=== PATIENT | female | born 1950 | race Caucasian/White ===

== ENCOUNTER 2017-05-31 14:24 | Inpatient (IN) | payer OTHER ==
[~2017-05-31] VITALS: Ht 157.5 cm; Wt 51.5 kg
[~2017-05-31 14:24] MED LIST: CYCL-319 PO; IBUP-1542 PO
[2017-05-31] MEDS ORDERED: ONDANSETRON 4 MG INJ IV STA (17:19)
[2017-05-31] MEDS ORDERED: morphine 4 MG/ML VIAL IV STA (17:19)
[2017-05-31] MEDS ORDERED: SOD CHLORIDE 0.9% 1,000 ML IV STA (17:19)
[2017-05-31 17:40] LABS: ADD SCAN DIFF NO
[2017-05-31 17:41] LABS: BASOPHILS % 0.3 % (0.0-2.0); EOSINOPHILS % 0.1 % (0.0-7.0); HEMATOCRIT 39.8 % (37.0-47.0); HEMOGLOBIN 12.9 g/dl (12.0-16.0); LYMPHOCYTES # 0.8 10^3/ul (0.8-2.9); LYMPHOCYTES % 5.1 % (15.0-51.0); MEAN CORPUSCULAR HEMOGLOBIN 30.5 pg (29.0-33.0); MEAN CORPUSCULAR HGB CONC 32.4 g/dl (32.0-37.0); MEAN CORPUSCULAR VOLUME 94.1 fl (82.0-101.0); MEAN PLATELET VOLUME 10.6 fl (7.4-10.4); MONOCYTE # 0.3 10^3/ul (0.3-0.9); NEUTROPHIL # 14.2 10^3/ul (1.6-7.5); PLATELET COUNT 266 10^3/UL (140-415); RED BLOOD COUNT 4.23 10^6/ul (4.20-5.40); RED CELL DISTRIBUTION WIDTH 13.2 % (11.5-14.5); WHITE BLOOD COUNT 15.4 10^3/ul (4.8-10.8)
[2017-05-31 17:59] LABS: ALBUMIN 4.7 g/dl (3.3-4.9); ALBUMIN/GLOBULIN RATIO 1.3; BILIRUBIN,INDIRECT 0.7 mg/dl (0-1.1); BILIRUBIN,TOTAL 0.7 mg/dl (0.2-1.3); CALCIUM 9.6 mg/dl (8.4-10.2); CREATININE 0.95 mg/dl (0.44-1.00); POTASSIUM 3.8 mmol/L (3.5-5.1); TOTAL PROTEIN 8.3 g/dl (6.1-8.1)
[2017-05-31 18:04] LABS: ADD UMIC YES; UR ASCORBIC ACID 40 mg/dL (NEGATIVE); UR BILIRUBIN (Dip) NEGATIVE (NEGATIVE); UR BLOOD (Dip) 2+ mg/dL (NEGATIVE); UR CLARITY SLIGHTLY CLOUDY (CLEAR); UR COLOR YELLOW (YELLOW); UR GLUCOSE (Dip) NEGATIVE (NEGATIVE); UR KETONES (Dip) 2+ mg/dL (NEGATIVE); UR LEUKOCYTE ESTERASE (Dip) NEGATIVE Leu/ul (NEGATIVE); UR MUCUS MANY /HPF (NONE SEEN); UR NITRITE (Dip) NEGATIVE (NEGATIVE); UR RBC 25 /HPF (0-5); UR SPECIFIC GRAVITY (Dip) 1.025 (1.003-1.030); UR TOTAL PROTEIN (Dip) NEGATIVE (NEGATIVE); UR UROBILINOGEN (Dip) NEGATIVE (NEGATIVE)
[2017-05-31] MEDS ORDERED: FENTAnyl 50 MCG/ML VIAL IV ONE (18:30)
--- NOTE | 2017-05-31 20:12 | RADRPT ---
PROCEDURE: CT abdomen and pelvis without contrast. CLINICAL INDICATION: Abdominal pain TECHNIQUE: CT scan of the abdomen and pelvis without contrast was performed. Sagittal and coronal reformatted images were obtained from the axial source images. CTDI = 6.98 mGy; DLP = 333.89 mGy-cm COMPARISON: None available. FINDINGS: Visualized lower thorax: The lung bases are clear of infiltrates, relative hyperlucency within the plaque of the left lower lobe possibly related to air trapping, tiny punctate calcified granulomata of the left lung base are seen. There is no evidence for pleural effusion. Liver, gallbladder, pancreas and spleen: The liver is normal and size, contour and attenuation. Th ere is no evidence for a liver mass or ductal dilatation. Findings are compatible with prior cholec ystectomy. No common bile duct abnormality is demonstrated. The pancreas is unremarkable. The spl een is normal in size. Adrenal glands and genitourinary system: The adrenal glands are normal bilaterally. The kidneys are normal and size, contour and attenuation with no evidence for masses, calculi or hydronephrosis. T he ureters are unremarkable. No urinary bladder abnormality is demonstrated. Calcifications within the uterus likely reflect small leiomyomata. There is no evidence of ovarian or adnexal mass. The re is a small to moderate amount in the posterior cul-de-sac. Gastrointestinal system: The stomach is normal in caliber with no abnormality of significance. The small bowel is normal in caliber with no ileus, obstruction or wall thickening. The appendix is inf erior/pelvic in location and dilated measuring approximately 13.5 mm in diameter, mild stranding of the surrounding fat is present (series 3 image 118 - wire at 25). There is no evidence of extralumi nal gas, appendicolith or abscess. The location of the appendix is approximately 2.5 cm below the s kin surface at the level of the anterior-superior iliac spine. Moderate amount of fecal debris thro ughout the colon is concerning for constipation without evidence of colitis or diverticulitis. Peritoneum, retroperitoneum, lymph nodes and vessels: The abdominal aorta is normal in caliber. The re is moderate aortic and iliac atherosclerotic calcification. The inferior vena cava is unremarkab le. There is no evidence for adenopathy or mass. No upper abdominal ascites is present, again ther e is pelvic ascites. There is no evidence of pneumoperitoneum. Osseous structures and musculoskeletal findings: There is no fracture, lytic or blastic lesion. No muscular abnormality or soft tissue pathology is present. RPTAT:HJJR IMPRESSION: 1. Dilated appendix at 13.5 mm with stranding of the surrounding fat and of the pelvis, findings con cerning for acute appendicitis. Results are discussed by telephone with Dr. Connor at 20:11 2. Calcifications in the uterus likely leiomyomata. 3. Constipation pattern. 4. Aortic atherosclerosis is present. Physician Lewis Date Time Electronically viewed and signed by Henry Page Physician on 05/31/2017 20:11 JR/
[2017-05-31] MEDS ORDERED: HYDROmorphONE 1 MG/ML SYG IV STA (20:48)
[2017-05-31] MEDS ORDERED: SOD CHLORIDE 0.9% 1,000 ML IV ONE (21:00)
[2017-05-31] MEDS ORDERED: metroNIDAZOLE 500 MG/NS (PMX) 100 ML IVPB ONE (21:00)
[2017-05-31] MEDS ORDERED: CEFTRIAXONE 1 GM/50 ML (PMX) 50 ML IVPB ONE (21:00)
[2017-05-31] MEDS ORDERED: ONDANSETRON 4 MG INJ IV PRN (22:00)
[2017-05-31] MEDS ORDERED: ACETAMINOPHEN 325 MG TAB PO PRN (22:00)
--- NOTE | 2017-05-31 22:14 | ERA ---
ER Documentation Chief Complaint Date/Time DATE: 05/31/17 TIME: 22:11 Chief Complaint GENERALIZED ABD PAIN WITH NAUSEA X 2 DAYS. HEADACHE HPI 66-year-old female with generalized lower abdominal pain for the last 2 days. Also nausea and inability to eat for a day and a half. States that she was dancing a lot this weekend thinks it might have to do with that. Denies fever and chills but feels very bad. Pain is severe sometimes and sometimes becomes mild. Sharp pain peer ROS All systems reviewed and are negative except as per history of present illness. Medications Home Meds Discontinued Scripts Cyclobenzaprine Hcl* (Cyclobenzaprine Hcl*) 10 Mg Tablet, 10 MG PO TID, #15 TAB Prov:ABRAN GARCIA. [employer] 05/01/15 Ibuprofen* (Motrin*) 600 Mg Tab, 600 MG PO Q6H Y for PAIN AND OR ELEVATED TEMP, #30 Prov:ABRAN GARCIA. [employer] 05/01/15 Allergies Allergies: Coded Allergies: No Known Allergy (Unverified , 05/31/17) PMhx/Soc Medical and Surgical Hx: pt denies Medical Hx Hx Alcohol Use: No Hx Substance Use: No Hx Tobacco Use: No Smoking Status: Never smoker Physical Exam Vitals Vital Signs Date Time Temp Pulse Resp B/P Pulse Ox O2 Delivery O2 Flow Rate FiO2 05/31/17 20:39 98.7 53 20 128/70 100 Room Air 05/31/17 18:59 98.6 53 20 136/71 100 Room Air 05/31/17 18:39 97.8 53 16 150/67 99 Room Air 05/31/17 17:40 56 18 108/63 99 Room Air 05/31/17 14:31 98.1 56 18 139/63 100 Physical Exam Const: [] Mild distress Head: Atraumatic Eyes: Normal Conjunctiva ENT: Normal External Ears, Nose and Mouth. Neck: Full range of motion..~ No meningismus. Resp: Clear to auscultation bilaterally Cardio: Regular rate and rhythm, no murmurs Abd: Soft, mild to moderate right lower quadrant tenderness with mild guarding there is voluntary and no rebound., non distended. Normal bowel sounds Skin: No petechiae or rashes Back: No midline or flank tenderness Ext: No cyanosis, or edema Neur: Awake and alert and oriented 3, no focal deficits Psych: Normal Mood and Affect Result Diagram: 05/31/17 1725 05/31/17 1725 Results 24 hrs Laboratory Tests Test 05/31/17 17:25 White Blood Count 15.410^3/ul Red Blood Count 4.2310^6/ul Hemoglobin 12.9g/dl Hematocrit 39.8% Mean Corpuscular Volume 94.1fl Mean Corpuscular Hemoglobin 30.5pg Mean Corpuscular Hemoglobin Concent 32.4g/dl Red Cell Distribution Width 13.2% Platelet Count 22169^3/UL Mean Platelet Volume 10.6fl Neutrophils % 92.0% Lymphocytes % 5.1% Monocytes % 2.0% Eosinophils % 0.1% Basophils % 0.3% Nucleated Red Blood Cells % 0.0/100WBC Neutrophils # 14.210^3/ul Lymphocytes # 0.810^3/ul Monocytes # 0.310^3/ul Eosinophils # 0.010^3/ul Basophils # 0.010^3/ul Nucleated Red Blood Cells # 0.010^3/ul Urine Color YELLOW Urine Clarity SLIGHTLY CLOUDY Urine pH 5.0 Urine Specific [place] 1.025 Urine Ketones 2+mg/dL Urine Nitrite NEGATIVEmg/dL Urine Bilirubin NEGATIVEmg/dL Urine Urobilinogen NEGATIVEmg/dL Urine Leukocyte Esterase NEGATIVELeu/ul Urine Microscopic RBC 25/HPF Urine Microscopic WBC 1/HPF Urine Mucus MANY/HPF Urine Hemoglobin 2+mg/dL Urine Glucose NEGATIVEmg/dL Urine Total Protein NEGATIVEmg/dl Sodium Level 142mmol/L Potassium Level 3.8mmol/L Chloride Level 98mmol/L Carbon Dioxide Level 26mmol/L Anion Gap 22 Blood Urea Nitrogen 25mg/dl Creatinine 0.95mg/dl Glucose Level 103mg/dl Calcium Level 9.6mg/dl Total Bilirubin 0.7mg/dl Direct Bilirubin 0.00mg/dl Indirect Bilirubin 0.7mg/dl Aspartate Amino Transf (AST/SGOT) 24IU/L Alanine Aminotransferase (ALT/SGPT) 25IU/L Alkaline Phosphatase 79IU/L Total Protein 8.3g/dl Albumin 4.7g/dl Globulin 3.60g/dl Albumin/Globulin Ratio 1.30 Lipase 139U/L Current Medications Medications (Trade) Dose Ordered Sig/Humera Route PRN Reason Start Time Stop Time Status Last Admin Dose Admin Sodium Chloride (NS) 1,000 ml @ 1,000 mls/hr Q1H STAT IV 05/31/17 17:19 05/31/17 18:18 DC 05/31/17 17:28 Morphine Sulfate (morphine) 4 mg ONCE STAT IV 05/31/17 17:19 05/31/17 17:22 DC Ondansetron HCl (Zofran Inj) 4 mg ONCE STAT IV 05/31/17 17:19 05/31/17 17:22 DC 05/31/17 17:28 Fentanyl 25 mcg 25 mcg ONCE ONCE IV 05/31/17 18:30 05/31/17 18:31 DC 05/31/17 18:54 Ceftriaxone Sodium 50 ml @ 100 mls/hr ONCE ONCE IVPB 05/31/17 21:00 05/31/17 21:29 DC 05/31/17 21:12 Metronidazole 100 ml @ 100 mls/hr ONCE ONCE IVPB 05/31/17 21:00 05/31/17 21:59 DC Sodium Chloride (NS) 1,000 ml @ 1,000 mls/hr Q1H ONCE IV 05/31/17 21:00 05/31/17 21:59 DC 05/31/17 21:16 Hydromorphone HCl (Dilaudid) 0.5 mg ONCE STAT IV 05/31/17 20:48 05/31/17 20:50 DC 05/31/17 21:17 Ondansetron HCl (Zofran Inj) 4 mg BRIDGE ORDER PRN IV NAUSEA AND/OR VOMITING 05/31/17 22:00 06/01/17 21:59 Acetaminophen (Tylenol Tab) 650 mg ER BRIDGE PRN PO MILD PAIN/FEVER 05/31/17 22:00 06/01/17 21:59 Procedures/MDM Acute appendicitis. Patient was given IV fluid, pain medication, antiemetics as well as Rocephin and Flagyl. Coags were obtained. I spoke with Dr. Shankar , general surgeon promotion officer. [facility]. [facility]. CT abdomen pelvis interpretation: Acute appendicitis. No obstruction, no free air, no fractures Departure Diagnosis: Primary Impression: Acute appendicitis HAO ARIAS DO May 31, 2017 22:14
[2017-05-31 22:15] VITALS: TEMP 98.6
[2017-05-31 22:21] LABS: INR 0.97; PROTIME 12.9 Sec (12.2-14.2)
[2017-05-31 22:22] LABS: PARTIAL THROMBOPLASTIN TIME 26.7 Sec (25.0-35.0)
[2017-05-31 23:12] VITALS: Ht 157.5 cm; Wt 51.5 kg
[2017-05-31] MEDS: DEXTROSE 5%-0.45% NACL 1,000 ML IV SCH (23:56)
[2017-06-01] VITALS (21 sets, daily range): BP systolic 103–140; BP diastolic 56–74; PULSE 59–80; RESP 14–23
[2017-06-01] MEDS ORDERED: ACETAMINOPHEN 650 MG SUPP PR PRN
[2017-06-01 04:50] LABS: ADD SCAN DIFF NO
[2017-06-01] MEDS: morphine 4 MG/ML VIAL IV PRN ×2 (04:53)
[2017-06-01 04:54] LABS: BASOPHILS % 0.2 % (0.0-2.0); EOSINOPHILS # 0.1 10^3/ul (0.0-0.5); EOSINOPHILS % 0.6 % (0.0-7.0); HEMOGLOBIN 10.5 g/dl (12.0-16.0); LYMPHOCYTES # 1.3 10^3/ul (0.8-2.9); LYMPHOCYTES % 11.8 % (15.0-51.0); MEAN CORPUSCULAR HEMOGLOBIN 29.7 pg (29.0-33.0); MEAN CORPUSCULAR HGB CONC 31.8 g/dl (32.0-37.0); MEAN CORPUSCULAR VOLUME 93.5 fl (82.0-101.0); MEAN PLATELET VOLUME 10.3 fl (7.4-10.4); MONOCYTE # 0.7 10^3/ul (0.3-0.9); MONOCYTES % 5.9 % (0.0-11.0); PLATELET COUNT 190 10^3/UL (140-415); RED BLOOD COUNT 3.53 10^6/ul (4.20-5.40); RED CELL DISTRIBUTION WIDTH 13.4 % (11.5-14.5); WHITE BLOOD COUNT 11.1 10^3/ul (4.8-10.8)
[2017-06-01 05:14] LABS: ALBUMIN 3.1 g/dl (3.3-4.9); ALBUMIN/GLOBULIN RATIO 1.14; BILIRUBIN,INDIRECT 0.5 mg/dl (0-1.1); BILIRUBIN,TOTAL 0.5 mg/dl (0.2-1.3); CREATININE 0.9 mg/dl (0.44-1.00); MAGNESIUM 1.8 mg/dl (1.7-2.5); PHOSPHORUS 3.5 mg/dl (2.5-4.9); POTASSIUM 3.5 mmol/L (3.5-5.1); TOTAL PROTEIN 5.8 g/dl (6.1-8.1)
[2017-06-01] MEDS ORDERED: GLYCOPYRROLATE 0.4 MG INJ ONE (07:00)
[2017-06-01] MEDS ORDERED: NEOSTIGMINE 3 MG/3 ML SYRINGE ONE (07:00)
[2017-06-01] MEDS ORDERED: EPHEDrine SULFATE 50 MG/5 ML SYG ONE (07:00)
[2017-06-01] MEDS: AMPICILLIN/SULB 3 GM/NS (PMX) 100 ML IVPB SCH ×2 (07:07→14:43)
[2017-06-01] MEDS ORDERED: morphine 4 MG/ML VIAL IV STA (07:29)
[2017-06-01] MEDS ORDERED: morphine 4 MG/ML VIAL IV PRN (10:00)
[2017-06-01] MEDS: DEXTROSE 5%-0.45% NACL 1,000 ML IV SCH (11:44)
--- NOTE | 2017-06-01 15:02 | RADRPT ---
PROCEDURE: Chest Radiograph. CLINICAL INDICATION: Preop TECHNIQUE: Single frontal chest radiograph. COMPARISON: CT abdomen pelvis 05/31/2017 FINDINGS: The cardiomediastinal silhouette is within normal limits. No infiltrate or effusion is seen. Th e bones are intact. IMPRESSION: 1. Unremarkable chest radiograph. RPTAT: KK .Almas Vanegas MD, MD Date Time Electronically viewed and signed by .Almas Vanegas MD, on 06/01/2017 15:02 .B/
--- NOTE | 2017-06-01 15:08 | PN ---
Date/Time of Note Date/Time of Note DATE: 06/01/17 TIME: 15:06 Assessment/Plan VTE Prophylaxis VTE Prophylaxis Intervention: SCD's Lines/Catheters IV Catheter Type (from [facility]): Peripheral IV Assessment/Plan Chief Complaint/Hosp Course Patient is a 66-year-old female with complaint of lower abdominal pain for the last 2 days, found to have acute appendicitis. Assessment Abdominal pain Acute appendicitis Leukocytosis, resolved Anemia, mild, Plan -Dr. Nevarez consulted, general surgery, plan for OR today -Pain control as necessary -N.p.o. until after surgery -Monitor overnight, likely DC tomorrow if no complications Fantasma Fontaine DO Problems: Subjective 24 Hr Interval Summary Free Text/Dictation no other complaints than RLQ tenderness Exam/Review of Systems Vital Signs Vitals Vital Signs Date Time Temp Pulse Resp B/P Pulse Ox O2 Delivery O2 Flow Rate FiO2 06/01/17 08:00 98.7 77 20 128/74 98 06/01/17 05:00 Room Air Intake and Output 05/31/17 05/31/17 06/01/17 15:00 23:00 07:00 Intake Total 1050 ml 600 ml Output Total 700 ml Balance 1050 ml -100 ml Exam Physical exam General: Patient is laying in bed and answers questions appropriately Mentation: Patient is alert and oriented 4, Head: Normocephalic atraumatic Eyes: EOMI, pupils reactive to light Neck: Supple, nontender, midline Respiratory: Clear to auscultation bilaterally Cardiovascular: regular rate, no obvious murmurs Gastrointestinal: RLQ tender to palpation, bowel sounds heard. Neurological: Moves all extremities spontaneously Skin: No new skin lesions Results Result Diagram: 06/01/17 0427 06/01/17 0427 Results 24 hrs Laboratory Tests Test 05/31/17 17:25 05/31/17 19:25 06/01/17 04:27 White Blood Count 15.4 H 11.1 #H Red Blood Count 4.23 3.53 L Hemoglobin 12.9 10.5 L Hematocrit 39.8 33.0 L Mean Corpuscular Volume 94.1 93.5 Mean Corpuscular Hemoglobin 30.5 29.7 Mean Corpuscular Hemoglobin Concent 32.4 31.8 L Red Cell Distribution Width 13.2 13.4 Platelet Count 266 190 # Mean Platelet Volume 10.6 H 10.3 Neutrophils % 92.0 H 81.0 H Lymphocytes % 5.1 L 11.8 L Monocytes % 2.0 5.9 Eosinophils % 0.1 0.6 Basophils % 0.3 0.2 Nucleated Red Blood Cells % 0.0 0.0 Neutrophils # 14.2 H 9.0 H Lymphocytes # 0.8 1.3 Monocytes # 0.3 0.7 Eosinophils # 0.0 0.1 Basophils # 0.0 0.0 Nucleated Red Blood Cells # 0.0 0.0 Urine Color YELLOW Urine Clarity SLIGHTLY CLOUDY A Urine pH 5.0 Urine Specific [place] 1.025 Urine Ketones 2+ H Urine Nitrite NEGATIVE Urine Bilirubin NEGATIVE Urine Urobilinogen NEGATIVE Urine Leukocyte Esterase NEGATIVE Urine Microscopic RBC 25 H Urine Microscopic WBC 1 Urine Mucus MANY A Urine Hemoglobin 2+ H Urine Glucose NEGATIVE Urine Total Protein NEGATIVE Sodium Level 142 142 Potassium Level 3.8 3.5 Chloride Level 98 104 Carbon Dioxide Level 26 25 Anion Gap 22 H 17 H Blood Urea Nitrogen 25 H 17 Creatinine 0.95 0.90 Glucose Level 103 115 Calcium Level 9.6 8.0 L Total Bilirubin 0.7 0.5 Direct Bilirubin 0.00 0.00 Indirect Bilirubin 0.7 0.5 Aspartate Amino Transf (AST/SGOT) 24 17 Alanine Aminotransferase (ALT/SGPT) 25 24 Alkaline Phosphatase 79 49 Total Protein 8.3 H 5.8 #L Albumin 4.7 3.1 #L Globulin 3.60 H 2.70 Albumin/Globulin Ratio 1.30 1.14 Lipase 139 Prothrombin Time 12.9 Prothrombin Time Ratio 1.0 INR International Normalized Ratio 0.97 Activated Partial Thromboplast Time 26.7 Phosphorus Level 3.5 Magnesium Level 1.8 Medications Medications Current Medications Dextrose/Sodium Chloride (D5-1/2ns) 1,000 ml @ 100 mls/hr Q10H IV Last administered on 06/01/17t 11:44; Admin Dose 100 MLS/HR; Start 06/01/17 at 00:00 Ondansetron HCl (Zofran Inj) 4 mg Q6H PRN IV NAUSEA AND/OR VOMITING; Start at 00:00 Acetaminophen 650 mg 650 mg Q6H PRN [place] FEVER; Start 06/01/17 at 00:00 Ampicillin Sodium/ Sulbactam Sodium (Unasyn 3gm/NS (Pmx)) 100 ml @ 100 mls/hr Q8 IVPB Last administered on 06/01/17 14:43; Admin Dose 100 MLS/HR; Start at 06:00 Morphine Sulfate (morphine) 4 mg Q3H PRN IV PAIN LEVEL 7-10 Last administered on 06/01/17 11:44; Admin Dose 4 MG; Start 06/01/17 at 10:00 FANTASMA FONTAINE Jun 01, 2017 15:08
[2017-06-01] MEDS ORDERED: BUPIVACAINE 0.25%/EPI (SDV) 30 ML INJ ONE ×2 (15:53→17:48)
[2017-06-01] MEDS ORDERED: LIDOCAINE 1% (MPF) 30 ML INJ ONE ×2 (15:53→17:47)
--- NOTE | 2017-06-01 16:25 | CONS ---
Date/Time of Note Date/Time of Note DATE: 06/01/17 TIME: 16:17 Assessment/Plan Assessment/Plan Chief Complaint/Hosp Course 1. Acute abdominal pain with leukocytosis and CT findings are suggestive of acute appendicitis. -IV antibiotics -Pain control -IV fluids -Patient offered options of nonsurgical treatment (antibiotics and observation) versus laparoscopic appendectomy. Risks and his alternatives were fully explained. She prefers to proceed with surgery at this time. 2. Anemia probably dilutional -Monitor 3. Hypoalbuminemia probably secondary to acute process -Monitor -Eventual nutritional optimization Thank you very much for consulting me in this patient's care, Problems: Consultation Date/Type/Reason Admit Date/Time May 31, 2017 at 21:43 Date of Consultation: Jun 01, 2017 Type of Consultation: General surgical Reason for Consultation Abdominal pain Acute appendicitis Leukocytosis Anemia Hypoalbuminemia Referring Provider: HAO ARIAS DO Hx of Present Illness [place] Garcia is a 66-year-old female otherwise mostly healthy who presents with 2 days of abdominal pain associated with nausea but no vomiting. No fevers or chills. No chest pain or shortness of breath. No previous history of the same. No visual neurologic changes. No dysuria. No abnormal discharge. No headache, dizziness, rashes, bloating. Last bowel function was about 36 hours ago. Normally has a bowel movement daily. In the emergency room her workup identified her to have leukocytosis and CT diagnosis of acute appendicitis. She is admitted placed on antibiotics and surgical consult is obtained further evaluation and treatment. 12 point review of systems negative unless addressed in HPI Past Medical History Anemia Hypoalbuminemia Acute leukocytosis Acute abdominal pain Acute appendicitis Past Surgical History section Family History Significant Family History: no pertinent family hx Social History Alcohol Use: none Smoking Status: Never smoker Drug Use: none Exam/Review of Systems Vital Signs Vitals Vital Signs Date Time Temp Pulse Resp B/P Pulse Ox O2 Delivery O2 Flow Rate FiO2 06/01/17 08:00 98.7 77 20 128/74 98 06/01/17 05:00 Room Air Intake and Output 05/31/17 05/31/17 06/01/17 15:00 23:00 07:00 Intake Total 1050 ml 600 ml Output Total 700 ml Balance 1050 ml -100 ml Exam Constitutional: alert, oriented, No distress Psych: nl mood/affect, No anxiety, No confusion Eyes: EOMI, PERRL, nl conjunctiva, No icteric ENMT: mucosa pink and moist, nl external ears & nose, nl lips & teeth Neck: non-tender, supple, No jvd Respiratory: normal air movement, No congested cough, No labored breathing Cardiovascular: regular rate and rhythm, No edema Gastrointestinal: soft, tender (Generalized but mostly in the right lower quadrant), No distended, No rebound or guarding Musculoskeletal: nl extremities to inspection, nl gait and stance, No joint tenderness Extremities: normal pulses, No calf tenderness, No cyanosis Neurological: nl mental status, nl speech, nl strength, No confused Skin: nl turgor, No diaphoresis, No ecchymosis, No rash or lesions Lymph: nl lymph nodes Results Result Diagram: 06/01/1742606/01/17426 Results 24 hrs Laboratory Tests Test 05/31/17 17:25 05/31/17 19:25 06/01/17 04:27 White Blood Count 15.4 H 11.1 #H Red Blood Count 4.23 3.53 L Hemoglobin 12.9 10.5 L Hematocrit 39.8 33.0 L Mean Corpuscular Volume 94.1 93.5 Mean Corpuscular Hemoglobin 30.5 29.7 Mean Corpuscular Hemoglobin Concent 32.4 31.8 L Red Cell Distribution Width 13.2 13.4 Platelet Count 266 190 # Mean Platelet Volume 10.6 H 10.3 Neutrophils % 92.0 H 81.0 H Lymphocytes % 5.1 L 11.8 L Monocytes % 2.0 5.9 Eosinophils % 0.1 0.6 Basophils % 0.3 0.2 Nucleated Red Blood Cells % 0.0 0.0 Neutrophils # 14.2 H 9.0 H Lymphocytes # 0.8 1.3 Monocytes # 0.3 0.7 Eosinophils # 0.0 0.1 Basophils # 0.0 0.0 Nucleated Red Blood Cells # 0.0 0.0 Urine Color YELLOW Urine Clarity SLIGHTLY CLOUDY A Urine pH 5.0 Urine Specific [place] 1.025 Urine Ketones 2+ H Urine Nitrite NEGATIVE Urine Bilirubin NEGATIVE Urine Urobilinogen NEGATIVE Urine Leukocyte Esterase NEGATIVE Urine Microscopic RBC 25 H Urine Microscopic WBC 1 Urine Mucus MANY A Urine Hemoglobin 2+ H Urine Glucose NEGATIVE Urine Total Protein NEGATIVE Sodium Level 142 142 Potassium Level 3.8 3.5 Chloride Level 98 104 Carbon Dioxide Level 26 25 Anion Gap 22 H 17 H Blood Urea Nitrogen 25 H 17 Creatinine 0.95 0.90 Glucose Level 103 115 Calcium Level 9.6 8.0 L Total Bilirubin 0.7 0.5 Direct Bilirubin 0.00 0.00 Indirect Bilirubin 0.7 0.5 Aspartate Amino Transf (AST/SGOT) 24 17 Alanine Aminotransferase (ALT/SGPT) 25 24 Alkaline Phosphatase 79 49 Total Protein 8.3 H 5.8 #L Albumin 4.7 3.1 #L Globulin 3.60 H 2.70 Albumin/Globulin Ratio 1.30 1.14 Lipase 139 Prothrombin Time 12.9 Prothrombin Time Ratio 1.0 INR International Normalized Ratio 0.97 Activated Partial Thromboplast Time 26.7 Phosphorus Level 3.5 Magnesium Level 1.8 Medications Medications Current Medications Dextrose/Sodium Chloride (D5-1/2ns) 1,000 ml @ 100 mls/hr Q10H IV Last administered on 06/01/17 11:44; Admin Dose 100 MLS/HR; Start 06/01/17 at 00:00 Ondansetron HCl (Zofran Inj) 4 mg Q6H PRN IV NAUSEA AND/OR VOMITING; Start at 00:00 Acetaminophen 650 mg 650 mg Q6H PRN [place] FEVER; Start 06/01/17 at 00:00 Ampicillin Sodium/ Sulbactam Sodium (Unasyn 3gm/NS (Pmx)) 100 ml @ 100 mls/hr Q8 IVPB Last administered on 06/01/17 14:43; Admin Dose 100 MLS/HR; Start at 06:00 Morphine Sulfate (morphine) 4 mg Q3H PRN IV PAIN LEVEL 7-10 Last administered on 06/01/17 11:44; Admin Dose 4 MG; Start 06/01/17 at 10:00 GALINA PEREZ MD Jun 01, 2017 16:25
[2017-06-01] MEDS ORDERED: MIDAZOLAM 1 MG/ML 2 ML INJ ONE (17:14)
[2017-06-01] MEDS ORDERED: FENTAnyl 50 MCG/ML VIAL ONE (17:14)
--- NOTE | 2017-06-01 17:38 | RADRPT ---
Vent Rate: 78 bpm RR Interval: 0 msec CA Interval: 146 msec QRS Duration: 88 msec QT Interval: 382 msec QTC Interval: 435 msec P-R-T Cameron: 38 - 37 - 47 degrees Normal sinus rhythm Normal ECG Electronically Signed By: Mart Vazquez [id number]
[2017-06-01] MEDS ORDERED: DIPHENHYDRAMINE 50 MG INJ IV PRN (18:00)
[2017-06-01] MEDS ORDERED: HYDROmorphONE (0.2 MG/ML) 10ML SYG IV PRN (18:00)
[2017-06-01] MEDS ORDERED: MEPERIDINE 25 MG INJ IV PRN (18:00)
[2017-06-01] MEDS ORDERED: ONDANSETRON 4 MG INJ IV PRN ×2 (18:00)
[2017-06-01] MEDS ORDERED: FENTAnyl 50 MCG/ML VIAL IV PRN (18:00)
[2017-06-01] MEDS ORDERED: PROCHLORPERAZINE 10 MG INJ IV PRN (18:00)
[2017-06-01] MEDS ORDERED: SUCCINYLCHOLINE CHLORIDE 100 MG/5 ML SYG IV ONE (18:01)
[2017-06-01] MEDS ORDERED: ROCURONIUM 50 MG INJ ONE (18:01)
[2017-06-01] MEDS ORDERED: PROPOFOL 20 ML ONE (18:01)
[2017-06-01] MEDS ORDERED: LIDOCAINE 2% (SDV) 5 ML INJ ONE (18:01)
[2017-06-01] MEDS ORDERED: ONDANSETRON 4 MG INJ ONE (18:12)
[2017-06-01] MEDS ORDERED: FAMOTIDINE 20 MG INJ ONE (18:12)
[2017-06-01] MEDS ORDERED: DEXAMETHASONE 4 MG/ML 1 ML INJ ONE (18:12)
[2017-06-01] MEDS ORDERED: KETOROLAC 30 MG INJ ONE (18:56)
[2017-06-01] MEDS ORDERED: ACETAMINOPHEN 1000MG/100ML IV 100 ML ONE (18:57)
--- NOTE | 2017-06-01 19:27 | OPR ---
Date/Time of Note Date/Time of Note DATE: 06/01/17 TIME: 19:23 Operative Report Procedure Date: Jun 01, 2017 Procedure Description Preoperative Diagnosis 1. Acute appendicitis with possible perforation Postoperative Diagnosis 1. Acute appendicitis with perforation and generalized peritonitis (pus throughout the abdomen) Operation Performed 1. Laparoscopic appendectomy and extensive washout 2. [place], [id number] 3. Laparoscopic guided bilateral transversus abdominis plane block 4. Difficult operation, modifier 22 Surgeon: GALINA PEREZ MD Anesthesia: general (Plus local plus regional) Anesthesiologist: Gabby Blakely MD Estimated Blood Loss: 10 ml's Specimens: Appendix Tubes/Drains 19 F [place] Complications: None Pt Condition Post Procedure: stable Disposition: PACU Indications: Per consult note. Risks include but are not limited to bleeding, infection, abscess, seroma, leak , damage to intestines or any intra-abdominal/intrapelvic structures, hernia formation, chronic pain, need for re-operations or further surgeries, MD, stroke , PE, DVT, pneumonia, organ failures, or even . Procedure Note: Patient was brought into the operating room, placed supine on the operating table, SCDs were placed, left arm was tucked, all pressure points were well- padded, preoperative antibiotics administered, and after induction of anesthesia , she was prepped and draped in usual sterile fashion, and timeout was performed. Incision was made supraumbilically and the Veress needle was safely place into the abdomen. After negative sip test, abdomen was insufflated to 15 mmHg with CO2. At this point Veress was removed and the 5 mm blunt trocar was placed into the abdomen. Laparoscopy was performed and no injuries were identified using a 5 mm 30 scope. Under direct visualization another 5 mm port was placed and left lower quadrant and 12 mm port in suprapubic region, through the previous scar, avoiding the bladder. All incision sites were injected with quarter percent Marcaine with 1% lidocaine with epi. Bilateral transversus abdominis plane block was performed under laparoscopic visualization to aid with pain control intra-and postoperatively. Patient was placed in Trendelenburg and right side up. The appendix was found to be very inflamed and ruptured. There was pus throughout the abdomen. The pus was immediately suctioned out and by the end of the case the entire abdomen was irrigated and suctioned out to clear suctioning fluid. The base was transected using Endo YENNI white load automatic 35 mm stapler just on the cecum. The tana were fired fully. The mesoappendix was transected with another white load stapler. Hemostasis was fully obtained. The appendix was placed in an Endo Catch bag and removed through the suprapubic port site. That fascia was closed with Endo Close and 0 Vicryl in a [id number] manner avoiding the bladder. Ports and CO2 were removed under direct visualization, wounds were fully irrigated, and skin was closed in subcuticular fashion using 4-0 Monocryl. Dermabond was applied. All counts were correct and the end of the operation 2. Patient was extubated and transferred to recovery room in stable condition. GALINA PEREZ MD Jun 01, 2017 19:27
[2017-06-01] MEDS ORDERED: ACETAMINOPHEN 325 MG TAB PO PRN (19:30)
[2017-06-01] MEDS: ACETAMINOPHEN 1000MG/100ML IV 100 ML IVPB SCH (19:42)
[2017-06-01] MEDS: D5W-0.45 NACL + KCL 20 MEQ 1,000 ML IV SCH (20:43)
[2017-06-01] MEDS: HYDROmorphONE 1 MG/ML SYG IV PRN (22:09)
[2017-06-01] MEDS: PIPER-TAZO 3.375 GM IV (PMX) 100 ML IVPB SCH (22:09)
[2017-06-02 00:09] VITALS: BP 102/59; PULSE 64; RESP 18
[2017-06-02] MEDS: ACETAMINOPHEN 1000MG/100ML IV 100 ML IVPB SCH ×2 (01:29→08:00)
--- NOTE | 2017-06-02 03:48 | HP ---
DATE OF ADMISSION: 05/31/2017 CHIEF COMPLAINT: Abdominal pain. HISTORY OF PRESENT ILLNESS: The patient is a 66-year-old female with a history of a , who presented to the emergency department complaining of abdominal pain x2 days. Pain is diffuse but somewhat worse in the right lower quadrant area and is associated with nausea. She states that over the weekend she was at a green party, and she was dancing, and she initially thought the pain was from that, but when it persisted she decided to come to the hospital for evaluation. She denied any fever, chills, chest pain, shortness of breath, or diarrhea. When she presented to the ER, vitals were stable. Laboratory values show a WBC of 15.4 and BUN 25. Otherwise CBC and CMP are within acceptable range. CT abdomen and pelvis without contrast shows dilated appendix, measuring 13.5 mm, with stranding of the surrounding fat and of the pelvis, findings concerning for acute appendicitis. Also noted was a calcification in the uterus, likely leiomyomata, and constipation pattern. She was given pain medication, IV fluids, as well as ceftriaxone and Flagyl while she was in the ER. REVIEW OF SYSTEMS: A 12-point review of systems was negative except as noted in HPI. PAST MEDICAL HISTORY: As per HPI. PAST SURGICAL HISTORY: . SOCIAL HISTORY: Denied history of tobacco, alcohol, or drug use. ALLERGIES: NO KNOW DRUG ALLERGIES. HOME MEDICATIONS: None. PHYSICAL EXAMINATION: VITALS: Stable except heart rate in the 50s. GENERAL: The patient is lying in bed in no acute distress. HEENT: No . CARDIOVASCULAR: Bradycardia with regular rhythm. LUNGS: Clear. ABDOMEN: Soft. There is some tenderness in the right side of the abdomen with no guarding, rebound tenderness, or rigidity. EXTREMITIES: No edema. NEUROLOGIC: No focal deficits. LABORATORY: mentioned in HPI. IMAGING: CT abdomen and pelvis without contrast as mentioned in the HPI. IMPRESSION: 1. Acute appendicitis. 2. Abdominal pain, secondary to above. 3. Leukocytosis, secondary to acute appendicitis. 4. Sinus bradycardia. PLAN: Will keep npo with IV fluids. Will provide pain medication and antiemetics as needed. She will be placed on antibiotics. I will monitor her heart rates closely and, if needed, will place a cardiology consult. A physical consult for appendicitis had been placed in the ER and Dr Shankar will evaluate the patient. clinical course. Dictated By: Edgar Choudhury MD /maria a/steve /Document#: [id number]
[2017-06-02 05:00] VITALS: BP 126/60; PULSE 65; RESP 18
[2017-06-02] MEDS: PANTOPRAZOLE (EC) 40 MG TAB PO SCH (05:15)
[2017-06-02] MEDS: PIPER-TAZO 3.375 GM IV (PMX) 100 ML IVPB SCH ×3 (05:15→22:01)
[2017-06-02] MEDS: HYDROmorphONE 1 MG/ML SYG IV PRN (05:16)
[2017-06-02 05:53] LABS: ADD SCAN DIFF NO
[2017-06-02 05:59] LABS: ABNORMAL IP MESSAGE 1; BASOPHILS % 0.1 % (0.0-2.0); HEMATOCRIT 33.2 % (37.0-47.0); HEMOGLOBIN 10.6 g/dl (12.0-16.0); LYMPHOCYTES # 0.6 10^3/ul (0.8-2.9); LYMPHOCYTES % 4.4 % (15.0-51.0); MEAN CORPUSCULAR HEMOGLOBIN 30.2 pg (29.0-33.0); MEAN CORPUSCULAR HGB CONC 31.9 g/dl (32.0-37.0); MEAN CORPUSCULAR VOLUME 94.6 fl (82.0-101.0); MEAN PLATELET VOLUME 11.1 fl (7.4-10.4); MONOCYTE # 0.4 10^3/ul (0.3-0.9); MONOCYTES % 3.2 % (0.0-11.0); NEUTROPHIL # 11.6 10^3/ul (1.6-7.5); PLATELET COUNT 177 10^3/UL (140-415); RED BLOOD COUNT 3.51 10^6/ul (4.20-5.40); RED CELL DISTRIBUTION WIDTH 13.3 % (11.5-14.5); WHITE BLOOD COUNT 12.6 10^3/ul (4.8-10.8)
[2017-06-02 06:11] LABS: CALCIUM 8.1 mg/dl (8.4-10.2); CREATININE 0.89 mg/dl (0.44-1.00); MAGNESIUM 1.7 mg/dl (1.7-2.5); PHOSPHORUS 3.2 mg/dl (2.5-4.9); POTASSIUM 4.1 mmol/L (3.5-5.1)
[2017-06-02] MEDS: ENOXAPARIN 40 MG/0.4 ML SYG SC SCH (06:19)
[2017-06-02] MEDS: D5W-0.45 NACL + KCL 20 MEQ 1,000 ML IV SCH ×3 (06:24→22:06)
[2017-06-02 08:00] VITALS: BP 113/62; RESP 18
--- NOTE | 2017-06-02 09:51 | PN ---
Date/Time of Note Date/Time of Note DATE: 06/02/17 TIME: 09:34 Assessment/Plan Lines/Catheters IV Catheter Type (from [facility]): Peripheral IV Assessment/Plan Chief Complaint/Hosp Course 1. Appendicitis with perforation and generalized peritonitis (pus throughout the abdomen): s/p lap appendectomy 06/01; +bowel sounds, no bm/flatus; 50ml out of [place] -IV antibiotics -Pain control -IV fluids -ambulation 2. Anemia probably dilutional: h/h stable -Monitor 3. Hypoalbuminemia probably secondary to acute process -Monitor -Eventual nutritional optimization 4. Leukocytosis: 2/2 #1 +/- reactive; wbc up; afebrile -as above -IS- patient educated on importance of use -increase ambulation 5. Hypocalcemia: likely /2 #3 -replace and monitor Patient seen and examined in collaboration with Dr. Rigo Shankar Problems: Subjective 24 Hr Interval Summary Nausea without vomiting. c/o abdominal pain improved with pain medication. Using IS sparingly. No dysuria. tolerating clears. No fevers, chills, de jesus, dizziness, sob, cp, palpitations. No bm/flatus Exam/Review of Systems Vital Signs Vitals Vital Signs Date Time Temp Pulse Resp B/P Pulse Ox O2 Delivery O2 Flow Rate FiO2 06/02/17 08:00 97.5 56 18 113/62 97 06/02/17 05:00 Room Air Intake and Output 06/01/17 06/01/17 06/02/17 15:00 23:00 07:00 Intake Total 1500 ml 1380 ml Output Total 50 ml 1220 ml Balance 1450 ml 160 ml Exam Free Text/Dictation Constitutional: alert, oriented, No distress Psych: nl mood/affect, No anxiety, No confusion Eyes: EOMI, PERRL, nl conjunctiva, No icteric ENMT: mucosa pink and moist, nl external ears & nose, nl lips & teeth Neck: non-tender, supple, No jvd Respiratory: normal air movement, No congested cough, No labored breathing Cardiovascular: regular rate and rhythm, No edema Gastrointestinal: soft, tender, CAM[place] draining serosanguinous drainage, incision sites dry no drainage No distended, No rebound or guarding Musculoskeletal: nl extremities to inspection, nl gait and stance, No joint tenderness Extremities: normal pulses, No calf tenderness, No cyanosis Neurological: nl mental status, nl speech, nl strength, No confused Skin: nl turgor, No diaphoresis, No ecchymosis, No rash or lesions Lymph: nl lymph nodes Results Result Diagram: 06/02/17 0446 06/02/17 0446 LUKE BUCK NP Jun 02, 2017 09:50
[2017-06-02] MEDS ORDERED: ONDANSETRON 4 MG INJ IV STA (10:19)
--- NOTE | 2017-06-02 13:42 | PN ---
Date/Time of Note Date/Time of Note DATE: 06/02/17 TIME: 13:39 Assessment/Plan VTE Prophylaxis VTE Prophylaxis Intervention: LMWH Lines/Catheters IV [facility]atheter Type (from [facility]): Peripheral IV Assessment/Plan Chief Complaint/Hosp Course Patient is a 66-year-old female with complaint of lower abdominal pain for the last 2 days, found to have acute appendicitis. Assessment Abdominal pain Acute appendicitis, complicated, ruptured Leukocytosis Anemia, mild, Plan -Dr. Nevarez performed appendectomy with irrigation of purulent drainage for ruptured appendix -broad spectrum abx for at least 5 days -watch carefully, RAF drain still in -PRN BP/Pain medication -mild headache. tylenol or fioricet, do not exceed total dose of acetaminphen of 3.25 grams daily. Fantasma Fontaine DO Problems: Subjective 24 Hr Interval Summary Free Text/Dictation complains of mild headache and moderate abdominal pain Exam/Review of Systems Vital Signs Vitals Vital Signs Date Time Temp Pulse Resp B/P Pulse Ox O2 Delivery O2 Flow Rate FiO2 06/02/17 08:00 97.5 56 18 113/62 97 06/02/17 05:00 Room Air Intake and Output 06/01/17 06/01/17 06/02/17 15:00 23:00 07:00 Intake Total 1500 ml 1380 ml Output Total 50 ml 1220 ml Balance 1450 ml 160 ml Exam Physical exam General: Patient is laying in bed and answers questions appropriately Mentation: Patient is alert and oriented 4, Head: Normocephalic atraumatic Eyes: EOMI, pupils reactive to light Neck: Supple, nontender, midline Respiratory: Clear to auscultation bilaterally Cardiovascular: regular rate, no obvious murmurs Gastrointestinal: moderate tender to palpation, bowel sounds heard. RAF drain in. Neurological: Moves all extremities spontaneously Skin: No new skin lesions Results Result Diagram: 06/02/17 0446 06/02/17 0446 Results 24 hrs Laboratory Tests Test 06/02/17 04:46 White Blood Count 12.6 H Red Blood Count 3.51 L Hemoglobin 10.6 L Hematocrit 33.2 L Mean Corpuscular Volume 94.6 Mean Corpuscular Hemoglobin 30.2 Mean Corpuscular Hemoglobin Concent 31.9 L Red Cell Distribution Width 13.3 Platelet Count 177 Mean Platelet Volume 11.1 H Neutrophils % 92.0 H Lymphocytes % 4.4 L Monocytes % 3.2 Eosinophils % 0.0 Basophils % 0.1 Nucleated Red Blood Cells % 0.0 Neutrophils # 11.6 H Lymphocytes # 0.6 L Monocytes # 0.4 Eosinophils # 0.0 Basophils # 0.0 Nucleated Red Blood Cells # 0.0 Sodium Level 135 Potassium Level 4.1 Chloride Level 97 Carbon Dioxide Level 26 Anion Gap 16 Blood Urea Nitrogen 12 Creatinine 0.89 Glucose Level 179 Calcium Level 8.1 L Phosphorus Level 3.2 Magnesium Level 1.7 Medications Medications Current Medications Ondansetron HCl (Zofran Inj) 4 mg Q6H PRN IV NAUSEA AND/OR VOMITING Last administered on 06/02/17 05:51; Admin Dose 4 MG; Start 06/01/17 at 00:00 Hydromorphone HCl (Dilaudid) 0.5 mg Q2H PRN IV PAIN LEVEL 7-10 Last administered on 06/02/17 05:16; Admin Dose 0.5 MG; Start 06/01/17 at 19:30 Acetaminophen/ Hydrocodone Bitart ([place] (5/325)) 1 tab Q6H PRN PO PAIN LEVEL 4 -6; Start 06/01/17 at 19:30 Pantoprazole 40 mg 40 mg DAILY@06 PO Last administered on 06/02/17 05:15; Admin Dose 40 MG; Start 06/02/17 at 06:00 Potassium Chloride/Dextrose/ Sod Cl (D5-1/2ns + KCl 20 Meq) 1,000 ml @ 90 mls/ hr Q11H7M IV Last administered on 06/01/17 20:43; Admin Dose 90 MLS/HR; Start 06/01/17 at 19:17 Enoxaparin Sodium 40 mg 40 mg DAILY@07 SC Last administered on 06/02/17 06:19 ; Admin Dose 40 MG; Start 06/02/17 at 07:00 Piperacillin Sod/ Tazobactam Sod (Zosyn 3.375gm/ 100 ml (Pmx)) 100 ml @ 200 mls /hr Q8 IVPB Last administered on 06/02/17 13:30; Admin Dose 200 MLS/HR; Start 06/01/17 at 22:00 Acetaminophen (Tylenol Tab) 650 mg Q6H PRN PO PAIN AND OR ELEVATED TEMP; Start 06/02/17 at 11:30 FANTASMA FONTAINE 19, 2017 13:42
[2017-06-02] MEDS ORDERED: ACET/BUTAL/CAFF TAB PO PRN (14:00)
[2017-06-02] MEDS: ACETAMINOPHEN 325 MG TAB PO PRN (15:41)
[2017-06-02 19:21] VITALS: BP 115/68; RESP 20
[2017-06-02] MEDS: HYDROCODONE/APAP (5/325) TAB PO PRN (22:01)
[2017-06-03 05:25] LABS: ADD SCAN DIFF NO
[2017-06-03 05:29] LABS: BASOPHILS % 0.3 % (0.0-2.0); EOSINOPHILS # 0.1 10^3/ul (0.0-0.5); EOSINOPHILS % 1.3 % (0.0-7.0); HEMATOCRIT 29.7 % (37.0-47.0); HEMOGLOBIN 9.6 g/dl (12.0-16.0); LYMPHOCYTES # 1.3 10^3/ul (0.8-2.9); LYMPHOCYTES % 16.6 % (15.0-51.0); MEAN CORPUSCULAR HEMOGLOBIN 30.3 pg (29.0-33.0); MEAN CORPUSCULAR HGB CONC 32.3 g/dl (32.0-37.0); MEAN CORPUSCULAR VOLUME 93.7 fl (82.0-101.0); MEAN PLATELET VOLUME 10.9 fl (7.4-10.4); MONOCYTE # 0.5 10^3/ul (0.3-0.9); MONOCYTES % 5.8 % (0.0-11.0); NEUTROPHILS % 75.4 % (39.0-77.0); PLATELET COUNT 155 10^3/UL (140-415); RED BLOOD COUNT 3.17 10^6/ul (4.20-5.40); RED CELL DISTRIBUTION WIDTH 13.1 % (11.5-14.5); WHITE BLOOD COUNT 7.9 10^3/ul (4.8-10.8)
[2017-06-03 06:03] LABS: CREATININE 1.15 mg/dl (0.44-1.00); MAGNESIUM 1.8 mg/dl (1.7-2.5); PHOSPHORUS 2.5 mg/dl (2.5-4.9); POTASSIUM 3.9 mmol/L (3.5-5.1)
[2017-06-03] MEDS: PANTOPRAZOLE (EC) 40 MG TAB PO SCH (06:03)
[2017-06-03] MEDS: PIPER-TAZO 3.375 GM IV (PMX) 100 ML IVPB SCH ×3 (06:03→22:07)
[2017-06-03] MEDS: ENOXAPARIN 40 MG/0.4 ML SYG SC SCH (06:03)
[2017-06-03 08:16] VITALS: BP 137/71
--- NOTE | 2017-06-03 10:05 | PN ---
Date/Time of Note Date/Time of Note DATE: 06/03/17 TIME: 10:01 Assessment/Plan Lines/Catheters IV Catheter Type (from [facility]): Peripheral IV Young in Place (from [facility]): No Assessment/Plan Chief Complaint/Hosp Course 1. Appendicitis with perforation and generalized peritonitis (pus throughout the abdomen): s/p lap appendectomy 06/01; +bowel sounds, no bm/flatus; 50ml out of [place] -IV antibiotics -Pain control -IV fluids -ambulation -IS 2. Anemia probably dilutional: h/h lower -Monitor -transfuse as needed 3. Hypoalbuminemia probably secondary to acute process -Monitor -Eventual nutritional optimization 4. Leukocytosis: / #1 +/- reactive; wbc normalized; afebrile -as above -IS- patient educated on importance of use -increase ambulation 5. Hypocalcemia: likely 12/17 #3 -replace and monitor 6. МАРИЯ: cr up, urinating -judicious fluids -monitor Patient seen and examined in collaboration with Dr. Rigo Shankar Problems: Subjective 24 Hr Interval Summary Feeling better. Abdominal pain improved. Tolerating soft diet. +flatus, no bm. Ambulating around hallway. Using IS. No n/v/d. No fevers, chills, de jesus, sz, dizziness. Exam/Review of Systems Vital Signs Vitals Vital Signs Date Time Temp Pulse Resp B/P Pulse Ox O2 Delivery O2 Flow Rate FiO2 06/03/17 08:16 98.5 55 137/71 100 06/02/17 19:21 20 06/02/17 05:00 Room Air Intake and Output 06/02/17 06/02/17 06/03/17 15:00 23:00 07:00 Intake Total 100 ml 1660 ml 1120 ml Output Total 20 ml 980 ml Balance 100 ml 1640 ml 140 ml Exam Free Text/Dictation Constitutional: alert, oriented, No distress Psych: nl mood/affect, No anxiety, No confusion Eyes: EOMI, PERRL, nl conjunctiva, No icteric ENMT: mucosa pink and moist, nl external ears & nose, nl lips & teeth Neck: non-tender, supple, No jvd Respiratory: normal air movement, No congested cough, No labored breathing Cardiovascular: regular rate and rhythm, No edema Gastrointestinal: soft, tender, [place] draining serosanguinous drainage, incision sites dry no drainage No distended, No rebound or guarding Musculoskeletal: nl extremities to inspection, nl gait and stance, No joint tenderness Extremities: normal pulses, No calf tenderness, No cyanosis Neurological: nl mental status, nl speech, nl strength, No confused Skin: nl turgor, No diaphoresis, No ecchymosis, No rash or lesions Lymph: nl lymph nodes Results Result Diagram: 06/03/17 0443 06/03/17 0443 LUKE BUCK NP Jun 03, 2017 10:05
[2017-06-03] MEDS: D5W-0.45 NACL + KCL 20 MEQ 1,000 ML IV SCH (15:45)
--- NOTE | 2017-06-03 17:41 | PN ---
Date/Time of Note Date/Time of Note DATE: 06/03/17 TIME: 17:40 Assessment/Plan VTE Prophylaxis VTE Prophylaxis Intervention: SCD's Lines/Catheters IV Catheter Type (from [facility]): Saline Lock Urinary Cath still in place: No Assessment/Plan Chief Complaint/Hosp Course Patient is a 66-year-old female with complaint of lower abdominal pain for the last 2 days, found to have acute appendicitis. Assessment Abdominal pain Acute appendicitis, complicated, ruptured Leukocytosis Anemia, mild, Plan -Dr. Nevarez performed appendectomy with irrigation of purulent drainage for ruptured appendix -broad spectrum abx for at least 4 more days -watch carefully, RAF drain still in -PRN BP/Pain medication -mild headache. tylenol or fioricet, do not exceed total dose of acetaminphen of 3.25 grams daily. Fantasma Fontaine DO Problems: Subjective 24 Hr Interval Summary Free Text/Dictation no acute complaints, feels better Exam/Review of Systems Vital Signs Vitals Vital Signs Date Time Temp Pulse Resp B/P Pulse Ox O2 Delivery O2 Flow Rate FiO2 06/03/17 08:16 98.5 55 137/71 100 06/02/17 19:21 20 06/02/17 05:00 Room Air Intake and Output 06/02/17 06/02/17 06/03/17 15:00 23:00 07:00 Intake Total 100 ml 1660 ml 1120 ml Output Total 20 ml 980 ml Balance 100 ml 1640 ml 140 ml Exam Physical exam General: Patient is laying in bed and answers questions appropriately Mentation: Patient is alert and oriented 4, Head: Normocephalic atraumatic Eyes: EOMI, pupils reactive to light Neck: Supple, nontender, midline Respiratory: Clear to auscultation bilaterally Cardiovascular: regular rate, no obvious murmurs Gastrointestinal: moderate tender to palpation, bowel sounds heard. RAF drain in. Neurological: Moves all extremities spontaneously Skin: No new skin lesions Results Result Diagram: 06/03/1744206/03/17442 Results 24 hrs Laboratory Tests Test 06/03/17 04:43 White Blood Count 7.9 # Red Blood Count 3.17 L Hemoglobin 9.6 L Hematocrit 29.7 L Mean Corpuscular Volume 93.7 Mean Corpuscular Hemoglobin 30.3 Mean Corpuscular Hemoglobin Concent 32.3 Red Cell Distribution Width 13.1 Platelet Count 155 Mean Platelet Volume 10.9 H Neutrophils % 75.4 Lymphocytes % 16.6 Monocytes % 5.8 Eosinophils % 1.3 Basophils % 0.3 Nucleated Red Blood Cells % 0.0 Neutrophils # 6.0 Lymphocytes # 1.3 Monocytes # 0.5 Eosinophils # 0.1 Basophils # 0.0 Nucleated Red Blood Cells # 0.0 Sodium Level 138 Potassium Level 3.9 Chloride Level 103 Carbon Dioxide Level 26 Anion Gap 13 Blood Urea Nitrogen 11 Creatinine 1.15 H Glucose Level 85 # Calcium Level 8.0 L Phosphorus Level 2.5 Magnesium Level 1.8 Medications Medications Current Medications Ondansetron HCl (Zofran Inj) 4 mg Q6H PRN IV NAUSEA AND/OR VOMITING Last administered on 06/02/17 05:51; Admin Dose 4 MG; Start 06/01/17 at 00:00 Hydromorphone HCl (Dilaudid) 0.5 mg Q2H PRN IV PAIN LEVEL 7-10 Last administered on 06/02/17 05:16; Admin Dose 0.5 MG; Start 06/01/17 at 19:30 Acetaminophen/ Hydrocodone Bitart ([place] (5/325)) 1 tab Q6H PRN PO PAIN LEVEL 4 -6 Last administered on 06/02/17 22:01; Admin Dose 1 TAB; Start 06/01/17 at 19: 30 Pantoprazole 40 mg 40 mg DAILY@06 PO Last administered on 06/03/17 06:03; Admin Dose 40 MG; Start 06/02/17 at 06:00 Potassium Chloride/Dextrose/ Sod Cl (D5-1/2ns + KCl 20 Meq) 1,000 ml @ 90 mls/ hr Q11H7M IV Last administered on 06/02/17 22:06; Admin Dose 90 MLS/HR; Start 06/01/17 at 19:17 Enoxaparin Sodium 40 mg 40 mg DAILY@07 SC Last administered on 06/03/17 06:03 ; Admin Dose 40 MG; Start 06/02/17 at 07:00 Piperacillin Sod/ Tazobactam Sod (Zosyn 3.375gm/ 100 ml (Pmx)) 100 ml @ 200 mls /hr Q8 IVPB Last administered on 06/03/17 13:58; Admin Dose 200 MLS/HR; Start 7/18/17 at 22:00 Acetaminophen (Tylenol Tab) 650 mg Q6H PRN PO PAIN AND OR ELEVATED TEMP Last administered on 06/02/17t 15:41; Admin Dose 650 MG; Start 06/02/17 at 11:30 Acetaminophen/ Butalbital/ Caffeine (Fioricet) 1 tab Q6H PRN PO headache; Start 06/02/17 at 14:00 FANTASMA FONTAINE Jun 03, 2017 17:41
[2017-06-03 19:16] VITALS: BP 124/61; RESP 20
[2017-06-03] MEDS: ACETAMINOPHEN 325 MG TAB PO PRN (22:13)
[2017-06-04] MEDS: HYDROmorphONE 1 MG/ML SYG IV PRN ×3 (02:46→22:06)
[2017-06-04] MEDS: D5W-0.45 NACL + KCL 20 MEQ 1,000 ML IV SCH ×2 (02:52→13:59)
[2017-06-04] MEDS: PANTOPRAZOLE (EC) 40 MG TAB PO SCH (06:55)
[2017-06-04] MEDS: PIPER-TAZO 3.375 GM IV (PMX) 100 ML IVPB SCH ×3 (06:57→22:04)
[2017-06-04] MEDS: ENOXAPARIN 40 MG/0.4 ML SYG SC SCH (06:59)
[2017-06-04 08:36] VITALS: BP 136/67; RESP 20
--- NOTE | 2017-06-04 13:59 | PN ---
Date/Time of Note Date/Time of Note DATE: 06/04/17 TIME: 13:57 Assessment/Plan VTE Prophylaxis VTE Prophylaxis Intervention: ambulation Lines/Catheters IV Catheter Type (from [facility]): Saline Lock Urinary Cath still in place: No Assessment/Plan Chief Complaint/Hosp Course Patient is a 66-year-old female with complaint of lower abdominal pain for the last 2 days, found to have acute appendicitis. Assessment Abdominal pain Acute appendicitis, complicated, ruptured Leukocytosis Anemia, mild, Plan -Dr. Nevarez performed appendectomy with irrigation of purulent drainage for ruptured appendix -broad spectrum abx for at least 5 days total -watch carefully, RAF drain still in -PRN BP/Pain medication -mild headache. tylenol or fioricet, do not exceed total dose of acetaminphen of 3.25 grams daily. 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 Exam/Review of Systems Vital Signs Vitals Vital Signs Date Time Temp Pulse Resp B/P Pulse Ox O2 Delivery O2 Flow Rate FiO2 06/04/17 08:36 98.3 55 20 136/67 98 06/02/17 05:00 Room Air Intake and Output 06/03/17 06/03/17 06/04/17 15:00 23:00 07:00 Intake Total 100 ml 1700 ml 800 ml Output Total 1440 ml 850 ml Balance 100 ml 260 ml -50 ml Exam Physical exam General: Patient is laying in bed and answers questions appropriately Mentation: Patient is alert and oriented 4, Head: Normocephalic atraumatic Eyes: EOMI, pupils reactive to light Neck: Supple, nontender, midline Respiratory: Clear to auscultation bilaterally Cardiovascular: regular rate, no obvious murmurs Gastrointestinal: moderate tender to palpation, bowel sounds heard. RAF drain in. Neurological: Moves all extremities spontaneously Skin: No new skin lesions Results Result Diagram: 06/03/1744206/03/17442 Medications Medications Current Medications Ondansetron HCl (Zofran Inj) 4 mg Q6H PRN IV NAUSEA AND/OR VOMITING Last administered on 06/02/17 05:51; Admin Dose 4 MG; Start 06/01/17 at 00:00 Hydromorphone HCl (Dilaudid) 0.5 mg Q2H PRN IV PAIN LEVEL 7-10 Last administered on 06/04/17 09:40; Admin Dose 0.5 MG; Start 06/01/17 at 19:30 Acetaminophen/ Hydrocodone Bitart ([place] (5/325)) 1 tab Q6H PRN PO PAIN LEVEL 4 -6 Last administered on 06/02/17 22:01; Admin Dose 1 TAB; Start 06/01/17 at 19: 30 Pantoprazole 40 mg 40 mg DAILY@06 PO Last administered on 06/04/17 06:55; Admin Dose 40 MG; Start 06/02/17 at 06:00 Potassium Chloride/Dextrose/ Sod Cl (D5-1/2ns + KCl 20 Meq) 1,000 ml @ 90 mls/ hr Q11H7M IV Last administered on 06/02/17 22:06; Admin Dose 90 MLS/HR; Start 06/01/17 at 19:17 Enoxaparin Sodium 40 mg 40 mg DAILY@07 SC Last administered on 06/04/17 06:59 ; Admin Dose 40 MG; Start 06/02/17 at 07:00 Piperacillin Sod/ Tazobactam Sod (Zosyn 3.375gm/ 100 ml (Pmx)) 100 ml @ 200 mls /hr Q8 IVPB Last administered on 06/04/17 06:57; Admin Dose 200 MLS/HR; Start 06/01/17 at 22:00 Acetaminophen (Tylenol Tab) 650 mg Q6H PRN PO PAIN AND OR ELEVATED TEMP Last administered on 06/03/17 22:13; Admin Dose 650 MG; Start 06/02/17 at 11:30 Acetaminophen/ Butalbital/ Caffeine (Fioricet) 1 tab Q6H PRN PO headache; Start 06/02/17 at 14:00 FANTASMA FONTAINE Jun 04, 2017 13:58
[2017-06-04 21:06] VITALS: BP 150/69; RESP 20
--- NOTE | 2017-06-04 21:50 | PN ---
Date/Time of Note Date/Time of Note DATE: 06/04/17 TIME: 21:50 Assessment/Plan Lines/Catheters IV Catheter Type (from [facility]): Saline Lock Young in Place (from [facility]): No Assessment/Plan Chief Complaint/Hosp Course 1. Appendicitis with perforation and generalized peritonitis (pus throughout the abdomen): s/p lap appendectomy 06/01; +bowel sounds, no bm/flatus; 60ml out of [place], bleeding around [place] noted, pressure dressing applied -IV antibiotics -Pain control -IV fluids -ambulation -IS 2. Anemia likely dilutional -Monitor -transfuse as needed 3. Hypoalbuminemia probably secondary to acute process -Monitor -Eventual nutritional optimization 4. Leukocytosis: 2/ #1 +/- reactive; wbc normalized; afebrile -as above -IS- patient educated on importance of use -increase ambulation 5. Hypocalcemia: likely 2 #3 -replace and monitor 6. МАРИЯ: cr up, urinating -judicious fluids -monitor Patient seen and examined in collaboration with Dr. Rigo Shankar Problems: Subjective 24 Hr Interval Summary Feeling well. Abdominal pain much improved. Tolerating soft diet. +flatus, no bm. Ambulating around hallway. Using IS. No n/v/d. No fevers, chills, de jesus, sz, dizziness. Bleeding around [place] Exam/Review of Systems Vital Signs Vitals Vital Signs Date Time Temp Pulse Resp B/P Pulse Ox O2 Delivery O2 Flow Rate FiO2 06/05/17 07:00 98.7 55 18 143/68 97 06/02/17 05:00 Room Air Intake and Output 06/04/17 06/04/17 06/05/17 15:00 23:00 07:00 Intake Total 200 ml 1060 ml 450 ml Output Total 520 ml 800 ml Balance 200 ml 540 ml -350 ml Exam Free Text/Dictation Constitutional: alert, oriented, No distress Psych: nl mood/affect, No anxiety, No confusion Eyes: EOMI, PERRL, nl conjunctiva, No icteric ENMT: mucosa pink and moist, nl external ears & nose, nl lips & teeth Neck: non-tender, supple, No jvd Respiratory: normal air movement, No congested cough, No labored breathing Cardiovascular: regular rate and rhythm, No edema Gastrointestinal: soft, tender, CAM[place] draining serosanguinous drainage bleeding noted around cam[place] site, incision sites dry no drainage No distended, No rebound or guarding Musculoskeletal: nl extremities to inspection, nl gait and stance, No joint tenderness Extremities: normal pulses, No calf tenderness, No cyanosis Neurological: nl mental status, nl speech, nl strength, No confused Skin: nl turgor, No diaphoresis, No ecchymosis, No rash or lesions Lymph: nl lymph nodes Results Result Diagram: 06/03/17 0443 06/05/17 0500 LUKE BUCK NP Jun 04, 2017 21:50
[2017-06-05] MEDS: D5W-0.45 NACL + KCL 20 MEQ 1,000 ML IV SCH ×3 (01:06→23:20)
[2017-06-05 03:33] VITALS: BP 151/74; RESP 20
[2017-06-05 06:04] LABS: CALCIUM 8.6 mg/dl (8.4-10.2); CREATININE 0.97 mg/dl (0.44-1.00); MAGNESIUM 1.9 mg/dl (1.7-2.5); PHOSPHORUS 4.1 mg/dl (2.5-4.9); POTASSIUM 3.6 mmol/L (3.5-5.1)
[2017-06-05] MEDS: PIPER-TAZO 3.375 GM IV (PMX) 100 ML IVPB SCH ×3 (06:58→22:36)
[2017-06-05] MEDS: PANTOPRAZOLE (EC) 40 MG TAB PO SCH (06:58)
[2017-06-05 07:00] VITALS: BP 143/68; RESP 18
[2017-06-05] MEDS: ENOXAPARIN 40 MG/0.4 ML SYG SC SCH (07:07)
--- NOTE | 2017-06-05 13:05 | PN ---
Date/Time of Note Date/Time of Note DATE: 06/05/17 TIME: 13:02 Assessment/Plan VTE Prophylaxis VTE Prophylaxis Intervention: ambulation Lines/Catheters IV Catheter Type (from [facility]): Saline Lock Urinary Cath still in place: No Assessment/Plan Chief Complaint/Hosp Course Patient is a 66-year-old female with complaint of lower abdominal pain for the last 2 days, found to have acute appendicitis. Assessment Abdominal pain Acute appendicitis, complicated, ruptured Leukocytosis Anemia, mild, Plan -Dr. Nevarez performed appendectomy with irrigation of purulent drainage for ruptured appendix -broad spectrum abx for at least 5 days total -watch carefully, RAF drain still in -PRN BP/Pain medication -mild headache. tylenol or fioricet, do not exceed total dose of acetaminphen of 3.25 grams daily. Fantasma Fontaine DO Problems: Subjective 24 Hr Interval Summary Free Text/Dictation no acute change Exam/Review of Systems Vital Signs Vitals Vital Signs Date Time Temp Pulse Resp B/P Pulse Ox O2 Delivery O2 Flow Rate FiO2 06/05/17 07:00 98.7 55 18 143/68 97 06/02/17 05:00 Room Air Intake and Output 06/04/17 06/04/17 06/05/17 15:00 23:00 07:00 Intake Total 200 ml 1060 ml 450 ml Output Total 520 ml 800 ml Balance 200 ml 540 ml -350 ml Exam Physical exam General: Patient is laying in bed and answers questions appropriately Mentation: Patient is alert and oriented 4, Head: Normocephalic atraumatic Eyes: EOMI, pupils reactive to light Neck: Supple, nontender, midline Respiratory: Clear to auscultation bilaterally Cardiovascular: regular rate, no obvious murmurs Gastrointestinal: moderate tender to palpation, bowel sounds heard. RAF drain in. Neurological: Moves all extremities spontaneously Skin: No new skin lesions Results Result Diagram: 06/03/17 0443 06/05/17 0500 Results 24 hrs Laboratory Tests Test 06/05/17 05:00 Sodium Level 143 Potassium Level 3.6 Chloride Level 103 Carbon Dioxide Level 29 Anion Gap 15 Blood Urea Nitrogen 10 Creatinine 0.97 Glucose Level 102 Calcium Level 8.6 Phosphorus Level 4.1 Magnesium Level 1.9 Medications Medications Current Medications Ondansetron HCl (Zofran Inj) 4 mg Q6H PRN IV NAUSEA AND/OR VOMITING Last administered on 06/02/17 05:51; Admin Dose 4 MG; Start 06/01/17 at 00:00 Hydromorphone HCl (Dilaudid) 0.5 mg Q2H PRN IV PAIN LEVEL 7-10 Last administered on 06/04/17 22:06; Admin Dose 0.5 MG; Start 06/01/17 at 19:30 Acetaminophen/ Hydrocodone Bitart ([place] (5/325)) 1 tab Q6H PRN PO PAIN LEVEL 4 -6 Last administered on 06/02/17 22:01; Admin Dose 1 TAB; Start 06/01/17 at 19: 30 Pantoprazole 40 mg 40 mg DAILY@06 PO Last administered on 06/05/17 06:58; Admin Dose 40 MG; Start 06/02/17 at 06:00 Potassium Chloride/Dextrose/ Sod Cl (D5-1/2ns + KCl 20 Meq) 1,000 ml @ 90 mls/ hr Q11H7M IV Last administered on 06/02/17 22:06; Admin Dose 90 MLS/HR; Start 06/01/17 at 19:17 Enoxaparin Sodium 40 mg 40 mg DAILY@07 SC Last administered on 06/05/17 07:07 ; Admin Dose 40 MG; Start 06/02/17 at 07:00 Piperacillin Sod/ Tazobactam Sod (Zosyn 3.375gm/ 100 ml (Pmx)) 100 ml @ 200 mls /hr Q8 IVPB Last administered on 06/05/17 06:58; Admin Dose 200 MLS/HR; Start 06/01/17 at 22:00 Acetaminophen (Tylenol Tab) 650 mg Q6H PRN PO PAIN AND OR ELEVATED TEMP Last administered on 06/03/17 22:13; Admin Dose 650 MG; Start 06/02/17 at 11:30 Acetaminophen/ Butalbital/ Caffeine (Fioricet) 1 tab Q6H PRN PO headache; Start 06/02/17 at 14:00 FANTASMA FONTAINE Jun 05, 2017 13:05
[2017-06-05 19:45] VITALS: BP 152/71; RESP 22
--- NOTE | 2017-06-05 20:12 | PN ---
Date/Time of Note Date/Time of Note DATE: 06/05/17 TIME: 20:08 Assessment/Plan Lines/Catheters IV Catheter Type (from [facility]): Saline Lock Young in Place (from [facility]): No Assessment/Plan Chief Complaint/Hosp Course 1. Appendicitis with perforation and generalized peritonitis (pus throughout the abdomen): s/p lap appendectomy 06/01; Dark blood in RAF has become diluted but still persists. Labs not done today - stat ordered. -IV antibiotics -Pain control -IV fluids -ambulation -IS -Check labs -Close monitoring 2. Anemia likely dilutional, + ? blood loss -Monitor -check labs -transfuse as needed 3. Hypoalbuminemia probably secondary to acute process -Monitor -Eventual nutritional optimization 4. Leukocytosis: / #1 +/- reactive; Resolved -as above -IS- patient educated on importance of use -increase ambulation 5. МАРИЯ: Improved 6. Diarrhea -stool studies Thank you, Problems: Subjective 24 Hr Interval Summary 3 bouts of large diarrhea with gas. Dark blood in RAF turned to stone rigger color. Abdominal pain much improved. Tolerating diet. Ambulating around hallway. Using IS. No n/v/d. No fevers, chills, de jesus, sz, dizziness. Exam/Review of Systems Vital Signs Vitals Vital Signs Date Time Temp Pulse Resp B/P Pulse Ox O2 Delivery O2 Flow Rate FiO2 06/05/17 19:45 98.5 62 22 152/71 100 06/02/17 05:00 Room Air Intake and Output 06/04/17 06/04/17 06/05/17 15:00 23:00 07:00 Intake Total 200 ml 1060 ml 450 ml Output Total 520 ml 800 ml Balance 200 ml 540 ml -350 ml Exam Free Text/Dictation Constitutional: alert, oriented, No distress Psych: nl mood/affect, No anxiety, No confusion Eyes: EOMI, PERRL, nl conjunctiva, No icteric ENMT: mucosa pink and moist, nl external ears & nose, nl lips & teeth Neck: non-tender, supple, No jvd Respiratory: normal air movement, No congested cough, No labored breathing Cardiovascular: regular rate and rhythm, No edema Gastrointestinal: soft, min tender, RAF serosanguinous. Min bloated. No distended, No rebound or guarding Musculoskeletal: nl extremities to inspection, nl gait and stance, No joint tenderness Extremities: normal pulses, No calf tenderness, No cyanosis Neurological: nl mental status, nl speech, nl strength, No confused Skin: nl turgor, No diaphoresis, No ecchymosis, No rash or lesions Lymph: nl lymph nodes Results Result Diagram: 06/03/17 0443 06/05/17 0500 GALINA PEREZ MD Jun 05, 2017 20:12
[2017-06-05 20:34] LABS: BASOPHILS % 0.4 % (0.0-2.0); EOSINOPHILS # 0.2 10^3/ul (0.0-0.5); EOSINOPHILS % 2.9 % (0.0-7.0); HEMATOCRIT 35.5 % (37.0-47.0); HEMOGLOBIN 11.3 g/dl (12.0-16.0); LYMPHOCYTES # 1.4 10^3/ul (0.8-2.9); LYMPHOCYTES % 20.3 % (15.0-51.0); MEAN CORPUSCULAR HEMOGLOBIN 29.9 pg (29.0-33.0); MEAN CORPUSCULAR HGB CONC 31.8 g/dl (32.0-37.0); MEAN CORPUSCULAR VOLUME 93.9 fl (82.0-101.0); MEAN PLATELET VOLUME 10.4 fl (7.4-10.4); MONOCYTE # 0.4 10^3/ul (0.3-0.9); MONOCYTES % 6.3 % (0.0-11.0); NEUTROPHIL # 4.7 10^3/ul (1.6-7.5); NEUTROPHILS % 69.2 % (39.0-77.0); PLATELET COUNT 266 10^3/UL (140-415); RED BLOOD COUNT 3.78 10^6/ul (4.20-5.40); RED CELL DISTRIBUTION WIDTH 13.2 % (11.5-14.5); WHITE BLOOD COUNT 6.9 10^3/ul (4.8-10.8)
[2017-06-05 20:47] LABS: INR 0.86; PROTIME 11.7 Sec (12.2-14.2); PT RATIO 0.9
[2017-06-06 05:31] LABS: BASOPHILS % 0.3 % (0.0-2.0); EOSINOPHILS # 0.3 10^3/ul (0.0-0.5); EOSINOPHILS % 4.2 % (0.0-7.0); HEMATOCRIT 32.8 % (37.0-47.0); HEMOGLOBIN 10.7 g/dl (12.0-16.0); LYMPHOCYTES # 1.5 10^3/ul (0.8-2.9); LYMPHOCYTES % 22.7 % (15.0-51.0); MEAN CORPUSCULAR HEMOGLOBIN 29.8 pg (29.0-33.0); MEAN CORPUSCULAR HGB CONC 32.6 g/dl (32.0-37.0); MEAN CORPUSCULAR VOLUME 91.4 fl (82.0-101.0); MEAN PLATELET VOLUME 10.3 fl (7.4-10.4); MONOCYTE # 0.5 10^3/ul (0.3-0.9); MONOCYTES % 7.2 % (0.0-11.0); NEUTROPHIL # 4.2 10^3/ul (1.6-7.5); NEUTROPHILS % 64.8 % (39.0-77.0); PLATELET COUNT 254 10^3/UL (140-415); RED BLOOD COUNT 3.59 10^6/ul (4.20-5.40); RED CELL DISTRIBUTION WIDTH 13.3 % (11.5-14.5); WHITE BLOOD COUNT 6.5 10^3/ul (4.8-10.8)
[2017-06-06 05:45] LABS: ALBUMIN 3.5 g/dl (3.3-4.9); ALBUMIN/GLOBULIN RATIO 1.25; BILIRUBIN,INDIRECT 0.2 mg/dl (0-1.1); BILIRUBIN,TOTAL 0.2 mg/dl (0.2-1.3); CALCIUM 9.2 mg/dl (8.4-10.2); CREATININE 1.03 mg/dl (0.44-1.00); POTASSIUM 3.9 mmol/L (3.5-5.1); TOTAL PROTEIN 6.3 g/dl (6.1-8.1)
[2017-06-06 05:50] LABS: CALCIUM 9.4 mg/dl (8.4-10.2); CREATININE 0.96 mg/dl (0.44-1.00); PHOSPHORUS 4.4 mg/dl (2.5-4.9); POTASSIUM 4.1 mmol/L (3.5-5.1)
[2017-06-06] MEDS: PANTOPRAZOLE (EC) 40 MG TAB PO SCH (06:59)
[2017-06-06] MEDS: PIPER-TAZO 3.375 GM IV (PMX) 100 ML IVPB SCH ×3 (06:59→20:16)
[2017-06-06] MEDS: ENOXAPARIN 40 MG/0.4 ML SYG SC SCH (07:04)
[2017-06-06 08:02] VITALS: BP 146/73; RESP 20
[2017-06-06] MEDS: D5W-0.45 NACL + KCL 20 MEQ 1,000 ML IV SCH ×2 (09:45→21:34)
[2017-06-06] MEDS ORDERED: VITAMIN A & D 5 GM OINT PACKET TOP ONE (13:45)
--- NOTE | 2017-06-06 15:15 | PN ---
Date/Time of Note Date/Time of Note DATE: 06/06/17 TIME: 15:14 Assessment/Plan VTE Prophylaxis VTE Prophylaxis Intervention: ambulation Lines/Catheters IV Catheter Type (from [facility]): Saline Lock Urinary Cath still in place: No Assessment/Plan Chief Complaint/Hosp Course Patient is a 66-year-old female with complaint of lower abdominal pain for the last 2 days, found to have acute appendicitis. Assessment Abdominal pain Acute appendicitis, complicated, ruptured Leukocytosis Anemia, mild, Plan -Dr. Nevarez performed appendectomy with irrigation of purulent drainage for ruptured appendix -broad spectrum abx. today is 5th day. will continue until drain is removed -watch carefully, RAF drain still in -PRN BP/Pain medication -mild headache. tylenol or fioricet, do not exceed total dose of acetaminphen of 3.25 grams daily. -DC when drain is out Fantasma Fontaine DO Problems: Subjective 24 Hr Interval Summary Free Text/Dictation no acute complaints Exam/Review of Systems Vital Signs Vitals Vital Signs Date Time Temp Pulse Resp B/P Pulse Ox O2 Delivery O2 Flow Rate FiO2 06/06/17 08:02 98.0 72 20 146/73 96 Intake and Output 06/05/17 06/05/17 06/06/17 15:00 23:00 07:00 Intake Total 1350 ml Output Total 40 ml 1330 ml 40 ml Balance -40 ml 20 ml -40 ml Exam Physical exam General: Patient is laying in bed and answers questions appropriately Mentation: Patient is alert and oriented 4, Head: Normocephalic atraumatic Eyes: EOMI, pupils reactive to light Neck: Supple, nontender, midline Respiratory: Clear to auscultation bilaterally Cardiovascular: regular rate, no obvious murmurs Gastrointestinal: moderate tender to palpation, bowel sounds heard. RAF drain in. Neurological: Moves all extremities spontaneously Skin: No new skin lesions Results Result Diagram: 06/06/17 0440 06/06/17 0440 Results 24 hrs Laboratory Tests Test 06/05/17 19:34 06/06/17 04:40 White Blood Count 6.9 6.5 Red Blood Count 3.78 L 3.59 L Hemoglobin 11.3 L 10.7 L Hematocrit 35.5 L 32.8 L Mean Corpuscular Volume 93.9 91.4 Mean Corpuscular Hemoglobin 29.9 29.8 Mean Corpuscular Hemoglobin Concent 31.8 L 32.6 Red Cell Distribution Width 13.2 13.3 Platelet Count 266 # 254 Mean Platelet Volume 10.4 10.3 Neutrophils % 69.2 64.8 Lymphocytes % 20.3 22.7 Monocytes % 6.3 7.2 Eosinophils % 2.9 4.2 Basophils % 0.4 0.3 Nucleated Red Blood Cells % 0.0 0.0 Neutrophils # 4.7 4.2 Lymphocytes # 1.4 1.5 Monocytes # 0.4 0.5 Eosinophils # 0.2 0.3 Basophils # 0.0 0.0 Nucleated Red Blood Cells # 0.0 0.0 Prothrombin Time 11.7 L Prothrombin Time Ratio 0.9 INR International Normalized Ratio 0.86 Sodium Level 144 Potassium Level 3.9 Chloride Level 102 Carbon Dioxide Level 29 Anion Gap 17 H Blood Urea Nitrogen 16 Creatinine 1.03 H Glucose Level 101 Calcium Level 9.2 Phosphorus Level 4.4 Magnesium Level 2.0 Total Bilirubin 0.2 Direct Bilirubin 0.00 Indirect Bilirubin 0.2 Aspartate Amino Transf (AST/SGOT) 21 Alanine Aminotransferase (ALT/SGPT) 29 Alkaline Phosphatase 52 Total Protein 6.3 Albumin 3.5 Globulin 2.80 Albumin/Globulin Ratio 1.25 Medications Medications Current Medications Ondansetron HCl (Zofran Inj) 4 mg Q6H PRN IV NAUSEA AND/OR VOMITING Last administered on 06/02/17 05:51; Admin Dose 4 MG; Start 06/01/17 at 00:00 Hydromorphone HCl (Dilaudid) 0.5 mg Q2H PRN IV PAIN LEVEL 7-10 Last administered on 06/04/17 22:06; Admin Dose 0.5 MG; Start 06/01/17 at 19:30 Acetaminophen/ Hydrocodone Bitart ([place] (5/325)) 1 tab Q6H PRN PO PAIN LEVEL 4 -6 Last administered on 06/02/17 22:01; Admin Dose 1 TAB; Start 06/01/17 at 19: 30 Pantoprazole 40 mg 40 mg DAILY@06 PO Last administered on 06/06/17 06:59; Admin Dose 40 MG; Start 06/02/17 at 06:00 Potassium Chloride/Dextrose/ Sod Cl (D5-1/2ns + KCl 20 Meq) 1,000 ml @ 90 mls/ hr Q11H7M IV Last administered on 06/02/17 22:06; Admin Dose 90 MLS/HR; Start 06/01/17 at 19:17 Enoxaparin Sodium 40 mg 40 mg DAILY@07 SC Last administered on 06/06/17 07:04 ; Admin Dose 40 MG; Start 06/02/17 at 07:00 Piperacillin Sod/ Tazobactam Sod (Zosyn 3.375gm/ 100 ml (Pmx)) 100 ml @ 200 mls /hr Q8 IVPB Last administered on 06/06/17 13:26; Admin Dose 200 MLS/HR; Start 06/01/17 at 22:00 Acetaminophen (Tylenol Tab) 650 mg Q6H PRN PO PAIN AND OR ELEVATED TEMP Last administered on 06/03/17 22:13; Admin Dose 650 MG; Start 06/02/17 at 11:30 Acetaminophen/ Butalbital/ Caffeine (Fioricet) 1 tab Q6H PRN PO headache; Start 06/02/17 at 14:00 FANTASMA FONTAINE Jun 06, 2017 15:15
[2017-06-06 19:05] VITALS: BP 124/61; RESP 20
--- NOTE | 2017-06-06 23:58 | PN ---
Date/Time of Note Date/Time of Note DATE: 06/06/17 TIME: 23:56 Assessment/Plan Lines/Catheters IV Catheter Type (from [facility]): Saline Lock Young in Place (from [facility]): No Assessment/Plan Chief Complaint/Hosp Course 1. Appendicitis with perforation and generalized peritonitis (pus throughout the abdomen): s/p lap appendectomy 06/01; Dark blood in RAF has become diluted but still persists. Labs not done today - stat ordered. -IV antibiotics -Pain control -IV fluids -ambulation -IS -Check labs 2. Anemia likely dilutional. Stable. -Monitor 3. Hypoalbuminemia probably secondary to acute process -Monitor -Eventual nutritional optimization 4. Leukocytosis: / #1 +/- reactive; Resolved -as above -IS- patient educated on importance of use -increase ambulation 5. МАРИЯ: Improved 6. Diarrhea -stool studies Thank you, Problems: Subjective 24 Hr Interval Summary Bowel function. Dark blood in RAF turned to company laborer color. Abdominal pain much improved. Tolerating diet. Ambulating around hallway. No n/v/d. No fevers, chills, de jesus, sz, dizziness. Exam/Review of Systems Vital Signs Vitals Vital Signs Date Time Temp Pulse Resp B/P Pulse Ox O2 Delivery O2 Flow Rate FiO2 06/06/17 19:05 98.9 58 20 124/61 97 Intake and Output 06/05/17 06/05/17 06/06/17 15:00 23:00 07:00 Intake Total 1350 ml Output Total 40 ml 1330 ml 40 ml Balance -40 ml 20 ml -40 ml Exam Free Text/Dictation Constitutional: alert, oriented, No distress Psych: nl mood/affect, No anxiety, No confusion Eyes: EOMI, PERRL, nl conjunctiva, No icteric ENMT: mucosa pink and moist, nl external ears & nose, nl lips & teeth Neck: non-tender, supple, No jvd Respiratory: normal air movement, No congested cough, No labored breathing Cardiovascular: regular rate and rhythm, No edema Gastrointestinal: soft, min tender, RAF serosanguinous. Min bloated. No distended, No rebound or guarding Musculoskeletal: nl extremities to inspection, nl gait and stance, No joint tenderness Extremities: normal pulses, No calf tenderness, No cyanosis Neurological: nl mental status, nl speech, nl strength, No confused Skin: nl turgor, No diaphoresis, No ecchymosis, No rash or lesions Lymph: nl lymph nodes Results Result Diagram: 06/06/170 06/06/170 GALINA PEREZ MD Jun 06, 2017 23:58
[2017-06-07 05:22] LABS: BASOPHILS % 0.6 % (0.0-2.0); EOSINOPHILS # 0.3 10^3/ul (0.0-0.5); EOSINOPHILS % 4.3 % (0.0-7.0); HEMATOCRIT 32.4 % (37.0-47.0); HEMOGLOBIN 10.5 g/dl (12.0-16.0); LYMPHOCYTES # 1.5 10^3/ul (0.8-2.9); LYMPHOCYTES % 21.4 % (15.0-51.0); MEAN CORPUSCULAR HEMOGLOBIN 29.5 pg (29.0-33.0); MEAN CORPUSCULAR HGB CONC 32.4 g/dl (32.0-37.0); MEAN PLATELET VOLUME 10.1 fl (7.4-10.4); MONOCYTE # 0.6 10^3/ul (0.3-0.9); MONOCYTES % 8.9 % (0.0-11.0); NEUTROPHIL # 4.3 10^3/ul (1.6-7.5); NEUTROPHILS % 62.6 % (39.0-77.0); PLATELET COUNT 275 10^3/UL (140-415); RED BLOOD COUNT 3.56 10^6/ul (4.20-5.40); RED CELL DISTRIBUTION WIDTH 13.6 % (11.5-14.5); WHITE BLOOD COUNT 6.8 10^3/ul (4.8-10.8)
[2017-06-07] MEDS: PANTOPRAZOLE (EC) 40 MG TAB PO SCH (06:05)
[2017-06-07] MEDS: PIPER-TAZO 3.375 GM IV (PMX) 100 ML IVPB SCH ×2 (06:05→13:36)
[2017-06-07] MEDS: ENOXAPARIN 40 MG/0.4 ML SYG SC SCH (06:06)
[2017-06-07 06:27] LABS: CALCIUM 9.3 mg/dl (8.4-10.2); PHOSPHORUS 4.6 mg/dl (2.5-4.9); POTASSIUM 3.9 mmol/L (3.5-5.1)
[2017-06-07 08:00] VITALS: BP 126/65; RESP 18
[2017-06-07] MEDS: D5W-0.45 NACL + KCL 20 MEQ 1,000 ML IV SCH (08:41)
--- NOTE | 2017-06-07 09:12 | PN ---
Date/Time of Note Date/Time of Note DATE: 06/07/17 TIME: 09:06 Assessment/Plan Lines/Catheters IV Catheter Type (from [facility]): Saline Lock Young in Place (from [facility]): No Assessment/Plan Chief Complaint/Hosp Course 1. Appendicitis with perforation and generalized peritonitis (pus throughout the abdomen): s/p lap appendectomy 06/01; +bm, 65ml out of [place], no bleeding around [place] -IV antibiotics -Pain control -IV fluids -ambulation -IS 2. Anemia likely dilutional; stable -Monitor -transfuse as needed 3. Hypoalbuminemia probably secondary to acute process -Monitor -Eventual nutritional optimization 4. Leukocytosis: 2/2 #1 +/- reactive; wbc normalized; afebrile -monitor 5. Hypocalcemia: likely 2/2 #3, normalized -replace and monitor 6. МАРИЯ: cr normalized -judicious fluids -monitor Patient seen and examined in collaboration with Dr. Rigo Shankar Problems: Subjective 24 Hr Interval Summary Feels well. Ambulating around hallway, using IS. Diarrhea improved, bm's becoming more solid, tolerating diet. no drainage around [place]. No c/o sob, cough, de jesus, sz, dizziness, cp, palpitations, n/v/d, dysuria, fevers, chills. Exam/Review of Systems Vital Signs Vitals Vital Signs Date Time Temp Pulse Resp B/P Pulse Ox O2 Delivery O2 Flow Rate FiO2 06/07/17 08:00 98.2 59 18 126/65 96 Intake and Output 06/06/17 06/06/17 06/07/17 15:00 23:00 07:00 Intake Total 200 ml 1320 ml 1200 ml Output Total 135 ml 950 ml Balance 200 ml 1185 ml 250 ml Exam Free Text/Dictation Constitutional: alert, oriented, No distress Psych: nl mood/affect, No anxiety, No confusion Eyes: EOMI, PERRL, nl conjunctiva, No icteric ENMT: mucosa pink and moist, nl external ears & nose, nl lips & teeth Neck: non-tender, supple, No jvd Respiratory: normal air movement, No congested cough, No labored breathing Cardiovascular: regular rate and rhythm, No edema Gastrointestinal: soft, tender, [place] draining serosanguinous drainage, incision sites dry no drainage No distended, No rebound or guarding Musculoskeletal: nl extremities to inspection, nl gait and stance, No joint tenderness Extremities: normal pulses, No calf tenderness, No cyanosis Neurological: nl mental status, nl speech, nl strength, No confused Skin: nl turgor, No diaphoresis, No ecchymosis, No rash or lesions Lymph: nl lymph nodes Results Result Diagram: 06/07/17 0437 06/07/17 0437 LUKE BUCK NP Jun 07, 2017 09:11
--- NOTE | 2017-06-07 11:06 | PN ---
Date/Time of Note Date/Time of Note DATE: 06/07/17 TIME: 11:03 Assessment/Plan VTE Prophylaxis VTE Prophylaxis Intervention: SCD's Lines/Catheters IV Catheter Type (from [facility]): Saline Lock Urinary Cath still in place: No Assessment/Plan Chief Complaint/Hosp Course Assessment and plan 1. Acute appendicitis with perforation and generalized peritonitis (pus throughout the abdomen) Status post laparoscopic appendectomy and extensive washout Continue antibiotics, and pain medication Incentive spirometer and ambulation Disposition: Discharge home if clear as per surgical standpoint Problems: Subjective 24 Hr Interval Summary Free Text/Dictation Patient denies of any chest pain or shortness of breath Tolerating p.o. intake Bowel movement today Less than 5 cc output at the RAF Ambulating with minimal discomfort Minimal abdominal discomfort at the surgical site Exam/Review of Systems Vital Signs Vitals Vital Signs Date Time Temp Pulse Resp B/P Pulse Ox O2 Delivery O2 Flow Rate FiO2 06/07/17 08:00 98.2 59 18 126/65 96 Intake and Output 06/06/17 06/06/17 06/07/17 15:00 23:00 07:00 Intake Total 200 ml 1320 ml 1200 ml Output Total 135 ml 950 ml Balance 200 ml 1185 ml 250 ml Exam General: The patient is well-developed, Not in acute distress. HEENT: Atraumatic, normocephalic. The pupils are equal and round . Neck: Supple with full range of motion. Chest: Normal expansion of the thorax during inspiration Lungs: Clear to auscultation bilaterally Heart: Normal S1-S2, Regular rhythm and rate. Abdomen: Soft , nontender, nondistended , bowel sounds are present. Surgical site is dry and clean, RAF drain in place Extremities: Normal to inspection, no edema no cyanosis Neurologic: Normal mental status,The patient is awake, alert and oriented . Results Result Diagram: 06/07/17 0437 06/07/17 0437 Results 24 hrs Laboratory Tests Test 06/07/17 04:37 White Blood Count 6.8 Red Blood Count 3.56 L Hemoglobin 10.5 L Hematocrit 32.4 L Mean Corpuscular Volume 91.0 Mean Corpuscular Hemoglobin 29.5 Mean Corpuscular Hemoglobin Concent 32.4 Red Cell Distribution Width 13.6 Platelet Count 275 Mean Platelet Volume 10.1 Neutrophils % 62.6 Lymphocytes % 21.4 Monocytes % 8.9 Eosinophils % 4.3 Basophils % 0.6 Nucleated Red Blood Cells % 0.0 Neutrophils # 4.3 Lymphocytes # 1.5 Monocytes # 0.6 Eosinophils # 0.3 Basophils # 0.0 Nucleated Red Blood Cells # 0.0 Sodium Level 139 Potassium Level 3.9 Chloride Level 101 Carbon Dioxide Level 27 Anion Gap 15 Blood Urea Nitrogen 23 H Creatinine 1.00 Glucose Level 104 Calcium Level 9.3 Phosphorus Level 4.6 Magnesium Level 2.0 Medications Medications Current Medications Ondansetron HCl (Zofran Inj) 4 mg Q6H PRN IV NAUSEA AND/OR VOMITING Last administered on 06/02/17 05:51; Admin Dose 4 MG; Start 06/01/17 at 00:00 Hydromorphone HCl (Dilaudid) 0.5 mg Q2H PRN IV PAIN LEVEL 7-10 Last administered on 06/04/17 22:06; Admin Dose 0.5 MG; Start 06/01/17 at 19:30 Acetaminophen/ Hydrocodone Bitart ([place] (5/325)) 1 tab Q6H PRN PO PAIN LEVEL 4 -6 Last administered on 06/02/17 22:01; Admin Dose 1 TAB; Start 06/01/17 at 19: 30 Pantoprazole 40 mg 40 mg DAILY@06 PO Last administered on 06/07/17 06:05; Admin Dose 40 MG; Start 06/02/17 at 06:00 Potassium Chloride/Dextrose/ Sod Cl (D5-1/2ns + KCl 20 Meq) 1,000 ml @ 90 mls/ hr Q11H7M IV Last administered on 06/02/17 22:06; Admin Dose 90 MLS/HR; Start 06/01/17 at 19:17 Enoxaparin Sodium 40 mg 40 mg DAILY@07 SC Last administered on 06/07/17 06:06 ; Admin Dose 40 MG; Start 06/02/17 at 07:00 Piperacillin Sod/ Tazobactam Sod (Zosyn 3.375gm/ 100 ml (Pmx)) 100 ml @ 200 mls /hr Q8 IVPB Last administered on 06/07/17 06:05; Admin Dose 200 MLS/HR; Start 06/01/17 at 22:00 Acetaminophen (Tylenol Tab) 650 mg Q6H PRN PO PAIN AND OR ELEVATED TEMP Last administered on 7/20/17at 22:13; Admin Dose 650 MG; Start 06/02/17 at 11:30 Acetaminophen/ Butalbital/ Caffeine (Fioricet) 1 tab Q6H PRN PO headache; Start 06/02/17 at 14:00 TOÑO LORD MD Jun 07, 2017 11:06
[2017-06-07] MEDS: HYDROCODONE/APAP (5/325) TAB PO PRN (13:06)
[2017-06-07] MEDS ORDERED: HYDR-3498 PO (16:52)
[2017-06-07] MEDS ORDERED: METR500T PO (16:52)
[2017-06-07] MEDS ORDERED: LEVO500T72 PO (16:52)
--- NOTE | 2017-06-07 17:01 | DS ---
Date/Time of Note Date/Time of Note DATE: 06/07/17 TIME: 16:55 Discharge Summary Admission/Discharge Info Admit Date/Time May 31, 2017 at 21:43 Discharge Date/Time Discharge Diagnosis 1. Appendicitis with perforation and generalized peritonitis, s/p lap appendectomy 06/01/2017, stable, follow up with surgery 2. Normocytic Anemia, Stable. Patient Condition: Stable Hospital Course he patient is a 66-year-old female with a history of a , who presented to the emergency department complaining of abdominal pain x2 days. Pain is diffuse but somewhat worse in the right lower quadrant area and is associated with nausea. She states that over the weekend she was at a constitution party, and she was dancing, and she initially thought the pain was from that, but when it persisted she decided to come to the hospital for evaluation. She denied any fever, chills, chest pain, shortness of breath, or diarrhea. When she presented to the ER, vitals were stable. Laboratory values show a WBC of 15.4 and BUN 25. Otherwise CBC and CMP are within acceptable range. CT abdomen and pelvis without contrast shows dilated appendix, measuring 13.5 mm, with stranding of the surrounding fat and of the pelvis, findings concerning for acute appendicitis. Also noted was a calcification in the uterus, likely leiomyomata, and constipation pattern. She was given pain medication, IV fluids, as well as ceftriaxone and Flagyl while she was in the ER. Surgery was done on 06/02/2017 that revealed acute appendicitis with perforation and diffuse peritonitis. Patient had appendectomy and RAF drainage along with zosyn. Patient recovers well after the surgery. RAF drainage is removed today. Patient will be discharged with levaquin and flagyl and follow up with both PCP and surgery in one week. Home Meds Active Scripts Metronidazole* (Flagyl*) 500 Mg Tablet, 500 MG PO Q8 for 14 Days, TAB Prov:JUJU PAYNE MD 06/07/17 Levofloxacin* (Levaquin*) 500 Mg Tablet, 500 MG PO DAILY for 14 Days, TAB Prov:JUJU PAYNE MD 06/07/17 Hydrocodone Bit-Acetaminophen (Hydrocodone Bit-APAP) 5-325MG Tablet, 1 TAB PO Q6H Y for PAIN LEVEL 4-6, #30 TAB Prov:JUJU PAYNE MD 06/07/17 Discontinued Scripts Cyclobenzaprine Hcl* (Cyclobenzaprine Hcl*) 10 Mg Tablet, 10 MG PO TID, #15 TAB Prov:RADHA,ABRAN X. METER REPAIRER HELPER 05/01/15 Ibuprofen* (Motrin*) 600 Mg Tab, 600 MG PO Q6H Y for PAIN AND OR ELEVATED TEMP, #30 Prov:RADHA,ABRAN X. METER REPAIRER HELPER 05/01/15 Follow-up Plan PCP in one week Dr. Shankar in one week Primary Care Provider Barry Mike MD Pending Labs Laboratory Tests Test 06/07/17 04:37 White Blood Count 6.810^3/ul (4.8-10.8) Red Blood Count 3.5610^6/ul (4.20-5.40) Hemoglobin 10.5g/dl (12.0-16.0) Hematocrit 32.4% (37.0-47.0) Mean Corpuscular Volume 91.0fl (82.0-101.0) Mean Corpuscular Hemoglobin 29.5pg (29.0-33.0) Mean Corpuscular Hemoglobin Concent 32.4g/dl (32.0-37.0) Red Cell Distribution Width 13.6% (11.5-14.5) Platelet Count 42016^3/UL (140-415) Mean Platelet Volume 10.1fl (7.4-10.4) Neutrophils % 62.6% (39.0-77.0) Lymphocytes % 21.4% (15.0-51.0) Monocytes % 8.9% (0.0-11.0) Eosinophils % 4.3% (0.0-7.0) Basophils % 0.6% (0.0-2.0) Nucleated Red Blood Cells % 0.0/100WBC (0.0-0.0) Neutrophils # 4.310^3/ul (1.6-7.5) Lymphocytes # 1.510^3/ul (0.8-2.9) Monocytes # 0.610^3/ul (0.3-0.9) Eosinophils # 0.310^3/ul (0.0-0.5) Basophils # 0.010^3/ul (0.0-0.1) Nucleated Red Blood Cells # 0.010^3/ul (0.0-0.0) Sodium Level 139mmol/L (135-144) Potassium Level 3.9mmol/L (3.5-5.1) Chloride Level 101mmol/L (97-110) Carbon Dioxide Level 27mmol/L (21-31) Anion Gap 15 (8-16) Blood Urea Nitrogen 23mg/dl (7-20) Creatinine 1.00mg/dl (0.44-1.00) Glucose Level 104mg/dl (70-220) Calcium Level 9.3mg/dl (8.4-10.2) Phosphorus Level 4.6mg/dl (2.5-4.9) Magnesium Level 2.0mg/dl (1.7-2.5) JUJU PAYNE MD Jun 07, 2017 17:01
== END 2017-06-07 19:50 | disposition home or self-care (01) | DRG 339 ==
LOC: E/R 14:24 → MS1 21:43
PROVIDERS: ADMIT Internal Medicine; ATTEND Internal Medicine
PROC: 0DTJ4ZZ Resection of Appendix, Percutaneous Endoscopic Approach (ICD-10-PCS; principal; 2017-06-01 15:30)
DX: K35.2 Acute appendicitis with generalized peritonitis (principal); N17.9 Acute kidney failure, unspecified; E88.09 Other disorders of plasma-protein metabolism, not elsewhere classified; E83.51 Hypocalcemia; D64.9 Anemia, unspecified; D72.829 Elevated white blood cell count, unspecified; R00.1 Bradycardia, unspecified; R19.7 Diarrhea, unspecified
CPT/HCPCS: 36415; 71010; 74176; 80048; 80053; 81001; 83690; 83735; 84100; 85025; 85610; 85730; 87075; 87086; 88304; 93005; 96365; 96375; J0131; J0295; J0696; J1100; J1170; J1650; J1885; J2250; J2270; J2405; J2543; J2710; J3010; J3480; J7030; J7042; J7999

== ENCOUNTER 2017-10-26 18:33 | Emergency (ER) | payer OTHER ==
[~2017-10-26] VITALS: Ht 157.5 cm; Wt 61.0 kg
[~2017-10-26 18:33] MED LIST changes: -CYCL-319 PO; +HYDR-3498 PO; -IBUP-1542 PO; +LEVO500T72 PO; +METR500T PO
[2017-10-26 19:52] VITALS: Ht 157.5 cm; Wt 61.0 kg
[2017-10-26] MEDS ORDERED: SOD CHLORIDE 0.9% 1,000 ML IV STA (21:37)
[2017-10-26] MEDS ORDERED: ONDANSETRON 4 MG INJ IV ONE (22:15)
[2017-10-26] MEDS ORDERED: KETOROLAC 15 MG INJ IV ONE (22:15)
[2017-10-26 22:20] LABS: ADD UMIC YES; UR ASCORBIC ACID NEGATIVE (NEGATIVE); UR BILIRUBIN (Dip) NEGATIVE (NEGATIVE); UR BLOOD (Dip) 2+ mg/dL (NEGATIVE); UR CLARITY CLEAR (CLEAR); UR COLOR YELLOW (YELLOW); UR GLUCOSE (Dip) NEGATIVE (NEGATIVE); UR KETONES (Dip) 1+ mg/dL (NEGATIVE); UR LEUKOCYTE ESTERASE (Dip) NEGATIVE Leu/ul (NEGATIVE); UR MUCUS FEW /HPF (NONE SEEN); UR NITRITE (Dip) NEGATIVE (NEGATIVE); UR RBC 3 /HPF (0-5); UR SPECIFIC GRAVITY (Dip) 1.015 (1.003-1.030); UR TOTAL PROTEIN (Dip) NEGATIVE (NEGATIVE); UR UROBILINOGEN (Dip) NEGATIVE (NEGATIVE)
[2017-10-27 00:05] LABS: BASOPHILS % 0.4 % (0.0-2.0); EOSINOPHILS % 0.4 % (0.0-7.0); HEMATOCRIT 38.9 % (37.0-47.0); HEMOGLOBIN 12.7 g/dl (12.0-16.0); LYMPHOCYTES # 0.6 10^3/ul (0.8-2.9); MEAN CORPUSCULAR HEMOGLOBIN 29.4 pg (29.0-33.0); MEAN CORPUSCULAR HGB CONC 32.6 g/dl (32.0-37.0); MEAN PLATELET VOLUME 10.8 fl (7.4-10.4); MONOCYTE # 0.5 10^3/ul (0.3-0.9); MONOCYTES % 10.9 % (0.0-11.0); NEUTROPHIL # 3.3 10^3/ul (1.6-7.5); NEUTROPHILS % 73.6 % (39.0-77.0); PLATELET COUNT 193 10^3/UL (140-415); RED BLOOD COUNT 4.32 10^6/ul (4.20-5.40); RED CELL DISTRIBUTION WIDTH 13.3 % (11.5-14.5); WHITE BLOOD COUNT 4.5 10^3/ul (4.8-10.8)
[2017-10-27 00:20] LABS: ALBUMIN/GLOBULIN RATIO 1.21; BILIRUBIN,INDIRECT 0.8 mg/dl (0-1.1); BILIRUBIN,TOTAL 0.8 mg/dl (0.2-1.3); CALCIUM 8.8 mg/dl (8.4-10.2); CREATININE 0.96 mg/dl (0.44-1.00); POTASSIUM 3.8 mmol/L (3.5-5.1); TOTAL PROTEIN 7.3 g/dl (6.1-8.1)
[2017-10-27] MEDS ORDERED: NAPR-685 PO (00:51)
[2017-10-27] MEDS ORDERED: ONDA4TAB14 PO (00:51)
[2017-10-27] MEDS ORDERED: CIPR500T4 PO (00:51)
--- NOTE | 2017-10-27 00:58 | ERD ---
ER Documentation Chief Complaint Chief Complaint BIB SELF, CC: CHILLS AND URIN FREQUENCY HPI This 67-year-old female presents for mild bilateral flank pain is not made better or worse by anything, suprapubic pain and increased urinary frequency. She has also had chills without fevers. She states that she is very healthy and does not usually have any medical problems whatsoever. He has had nausea with no vomiting. His chest pain, shortness of breath. ROS All systems reviewed and are negative except as per history of present illness. Medications Home Meds Active Scripts Ondansetron (Ondansetron Odt) 4 Mg Tab.rapdis, 4 MG PO Q6H Y for NAUSEA AND/OR VOMITING, #10 TAB Prov:HAO ARIAS DO 10/27/17 Naproxen* (Naproxen*) 375 Mg Tablet, 375 MG PO BID Y for PAIN, #20 TAB Prov:HAO ARIAS DO 10/27/17 Ciprofloxacin Hcl* (Ciprofloxacin Hcl*) 500 Mg Tablet, 500 MG PO BID, #20 TAB Prov:HAO ARIAS DO 10/27/17 Metronidazole* (Flagyl*) 500 Mg Tablet, 500 MG PO Q8 for 14 Days, TAB Prov:JUJU PAYNE MD 06/07/17 Levofloxacin* (Levaquin*) 500 Mg Tablet, 500 MG PO DAILY for 14 Days, TAB Prov:JUJU PAYNE MD 06/07/17 Hydrocodone Bit-Acetaminophen (Hydrocodone Bit-APAP) 5-325MG Tablet, 1 TAB PO Q6H Y for PAIN LEVEL 4-6, #30 TAB Prov:JUJU PAYNE MD 06/07/17 Allergies Allergies: Coded Allergies: No Known Allergy (Unverified , 10/26/17) PMhx/Soc Medical and Surgical Hx: pt denies Medical Hx History of Surgery: Yes (c section, appendectomy) Anesthesia Reaction: No Hx Neurological Disorder: No Hx Respiratory Disorders: No Hx Cardiac Disorders: No Hx Psychiatric Problems: No Hx Alcohol Use: No Hx Substance Use: No Hx Tobacco Use: No Smoking Status: Never smoker Physical Exam Vitals Vital Signs Date Time Temp Pulse Resp B/P Pulse Ox O2 Delivery O2 Flow Rate FiO2 10/26/17 19:52 98.2 71 18 128/85 100 Physical Exam Const: [] No distress Head: Atraumatic Eyes: Normal Conjunctiva ENT: Normal External Ears, Nose and Mouth. Abd: Soft, non tender, non distended. Normal bowel sounds Skin: No petechiae or rashes Back: No midline or flank tenderness. Unable to reproduce the pain by palpation n. Ext: No cyanosis, or edema Neur: Awake and alert 3, no focal deficits Psych: Normal Mood and Affect Result Diagram: 10/26/17 2323 10/26/17 2323 Results 24 hrs Laboratory Tests Test 10/26/17 21:50 10/26/17 23:23 Urine Color YELLOW Urine Clarity CLEAR Urine pH 5.0 Urine Specific [place] 1.015 Urine Ketones 1+mg/dL Urine Nitrite NEGATIVEmg/dL Urine Bilirubin NEGATIVEmg/dL Urine Urobilinogen NEGATIVEmg/dL Urine Leukocyte Esterase NEGATIVELeu/ul Urine Microscopic RBC 3/HPF Urine Microscopic WBC 1/HPF Urine Mucus FEW/HPF Urine Hemoglobin 2+mg/dL Urine Glucose NEGATIVEmg/dL Urine Total Protein NEGATIVEmg/dl White Blood Count 4.510^3/ul Red Blood Count 4.3210^6/ul Hemoglobin 12.7g/dl Hematocrit 38.9% Mean Corpuscular Volume 90.0fl Mean Corpuscular Hemoglobin 29.4pg Mean Corpuscular Hemoglobin Concent 32.6g/dl Red Cell Distribution Width 13.3% Platelet Count 84344^3/UL Mean Platelet Volume 10.8fl Neutrophils % 73.6% Lymphocytes % 14.0% Monocytes % 10.9% Eosinophils % 0.4% Basophils % 0.4% Nucleated Red Blood Cells % 0.0/100WBC Neutrophils # 3.310^3/ul Lymphocytes # 0.610^3/ul Monocytes # 0.510^3/ul Eosinophils # 0.010^3/ul Basophils # 0.010^3/ul Nucleated Red Blood Cells # 0.010^3/ul Sodium Level 137mmol/L Potassium Level 3.8mmol/L Chloride Level 98mmol/L Carbon Dioxide Level 25mmol/L Anion Gap 18 Blood Urea Nitrogen 19mg/dl Creatinine 0.96mg/dl Glucose Level 82mg/dl Calcium Level 8.8mg/dl Total Bilirubin 0.8mg/dl Direct Bilirubin 0.00mg/dl Indirect Bilirubin 0.8mg/dl Aspartate Amino Transf (AST/SGOT) 125IU/L Alanine Aminotransferase (ALT/SGPT) 86IU/L Alkaline Phosphatase 107IU/L Total Protein 7.3g/dl Albumin 4.0g/dl Globulin 3.30g/dl Albumin/Globulin Ratio 1.21 Current Medications Medications (Trade) Dose Ordered Sig/Humera Route PRN Reason Start Time Stop Time Status Last Admin Dose Admin Sodium Chloride (NS) 1,000 ml @ 1,000 mls/hr Q1H STAT IV 10/26/17 21:37 10/26/17 22:36 DC 10/26/17 23:19 Ondansetron HCl (Zofran Inj) 4 mg ONCE ONCE IV 10/26/17 22:15 10/26/17 22:24 DC 10/26/17 23:18 Ketorolac Tromethamine (Toradol) 15 mg ONCE ONCE IV 10/26/17 22:15 10/26/17 22:24 DC 10/26/17 23:18 Procedures/MDM And has pain pattern representing mild pyelonephritis without obvious UTI and urinalysis. She was given 15 mg of IV Toradol which helped with her pain greatly. 4 mg of Zofran IV resolved her nausea. She was given a liter of normal saline. Vital signs are stable. Patient would like to undergo CAT scan is the cause of her symptoms is not exactly elucidated. CAT scan will be signed out to the oncoming physician. I am going to discharge her regardless based on symptomatology with a urinary tract infection and treat her for 10 days with ciprofloxacin based on clinical diagnosis. Also giving her naproxen and Zofran. Departure Diagnosis: Primary Impression: Nausea Additional Impressions: UTI (lower urinary tract infection) Abdominal pain Condition: Stable Patient Instructions: Abdominal Pain, Understanding Urinary Tract Infections ( UTIs), Nausea, Liver Panel Additional Instructions: Call your primary care doctor TOMORROW for an appointment during the next 2-3 days.See the doctor sooner or return here if your condition worsens before your appointment time. HAO ARIAS DO Oct 27, 2017 00:58
--- NOTE | 2017-10-27 05:02 | RADRPT ---
PROCEDURE: CT abdomen and pelvis without intravenous contrast. CLINICAL INDICATION: Flank pain. TECHNIQUE: CT of the abdomen/pelvis was performed utilizing axial images with reconstructions in s agittal and coronal planes. The administered radiation dose is CTDI 5.7 mGy, DLP 312 mGy-cm. One or more of the following dose reduction techniques were used: automated exposure control, adjustment of the mA and/or kV according to patient size and/or use of iterative reconstruction technique. DICOM images are available. COMPARISON: 05/31/2017 FINDINGS: Visualized Chest: The visualized lung bases are clear. Abdomen: The liver, spleen, pancreas, and adrenal glands are unremarkable. Prior cholecystectomy is noted. The kidneys are without hydronephrosis. No definite urinary calculi are seen. There is no evidence of bowel obstruction. Prior appendectomy is noted. No intra-abdominal free ai r is seen. There is no evidence of intra-abdominal adenopathy or free fluid. Some scattered atherosclerotic ca lcifications are noted in the aorta and its branches. Pelvis: There is no evidence of pelvic adenopathy. The uterus and ovaries are without enlargement. The uri nary bladder is unremarkable. There is a small amount of pelvic free fluid. Osseous structures: Unremarkable. IMPRESSION: No acute findings. RPTAT: HIKT .Duc Watts MD, MD Date Time Electronically viewed and signed by .Duc Watts MD, on 10/27/2017 05:02 .T/
[2017-10-27 05:36] VITALS: BP 139/88; PULSE 68; RESP 18; TEMP 98.3
== END 2017-10-27 05:36 | disposition home or self-care (01) ==
LOC: FTE 18:33 → E/R 10-27 05:36
DX: N39.0 Urinary tract infection, site not specified (principal); R11.2 Nausea with vomiting, unspecified
CPT/HCPCS: 36415; 74176; 80053; 81001; 85025; 87086; 96374; 96375; 99285; J1885; J2405; J7030